=== PATIENT | female | born 1970 | race Caucasian/White ===

== ENCOUNTER 2017-06-25 17:26 | Observation (INO) | payer OTHER ==
[~2017-06-25] VITALS: Ht 170.2 cm; Wt 136.3 kg
[~2017-06-25 17:26] MED LIST: ATEN50TA PO; CIPR500T94 PO; HYDR-971 PO; METO25TA2 PO; PROP150T2 PO; RIVA10TA PO
[2017-06-25] MEDS ORDERED: IV NORMAL SALINE 500ML 500 ML IV ONE (18:00)
[2017-06-25] MEDS ORDERED: dilTIAZem 25 MG/5 ML VIAL IVP ONE (18:15)
[2017-06-25] MEDS ORDERED: ASPIRIN 81 MG TAB.CHEW PO ONE (18:15)
--- NOTE | 2017-06-25 18:15 | PHYS DOC ---
Past History Past Medical History: A-Fib, Hypertension Past Surgical History: Hysterectomy Alcohol Use: None Drug Use: None Adult General Chief Complaint Chief Complaint: CHEST PAIN HPI HPI Patient is a 46 year old female who presents with palpitations. Patient reports onset of symptoms about one hour prior to arrival while ambulating in her home. She reports palpitations, left-sided chest pain over her heart, dyspnea with exertion. Denies fevers or chills, cough, nausea, vomiting, diaphoresis, lower extremity pain or swelling. She has previous history of similar symptoms, has been diagnosed with paroxysmal A. fib. Used to take rate control medication whose name she does not remember. She previously took xarelto as well. She states she has been off her medications for at least 3 months due to financial problems. She denies history of CAD but does have hypertension. She is a former smoker. Catheter Finisher And Inspector is Dr. Alfaro. Review of Systems Review of Systems Constitutional: Denies fever or chills Eyes: Denies change in visual acuity HENT: Denies nasal congestion or sore throat Respiratory: Denies cough, reports shortness of breath Cardiovascular: Reports chest pain and palpitations, denies edema GI: Denies abdominal pain, nausea, vomiting, bloody stools or diarrhea : Denies dysuria or hematuria Musculoskeletal: Denies back pain or joint pain Integument: Denies rash or skin lesions Neurologic: Denies headache, focal weakness or sensory changes All other systems were reviewed and found to be within normal limits, except as documented in this note. Current Medications Current Medications Current Medications Medications (Trade) Dose Ordered Sig/Ruma Start Time Stop Time Status Last Admin Dose Admin Aspirin (Children'S Aspirin) 324 mg 1X ONCE 06/25/17 18:15 06/25/17 18:16 Diltiazem HCl (Cardizem) 20 mg 1X ONCE 06/25/17 18:15 06/25/17 18:16 Sodium Chloride 500 ml @ 0 mls/hr 1X ONCE 06/25/17 18:00 06/25/17 18:01 DC Allergies Allergies Allergies Coded Allergies Type Severity Reaction Last Updated Verified No Known Drug Allergies 05/22/15 No Physical Exam Physical Exam Constitutional: Obese, no acute distress, non-toxic appearance. HENT: Normocephalic, atraumatic, bilateral external ears normal, oropharynx moist, nose normal. Eyes: conjunctiva normal, no discharge. Neck: supple, no stridor. Cardiovascular: Irregularly irregular tachycardic, no murmurs, lower extremity edema is present Lungs & Thorax: LCTAB, no wheezing, no respiratory distress. Abdomen: soft, nontender, nondistended. Skin: Warm, dry, no erythema, no rash. Back: No tenderness. Extremities: No tenderness, 1+ nonpitting edema to bilateral lower extremities, no calf tenderness Neurologic: Alert and oriented X 3, no focal deficits noted. Psychologic: Affect normal, judgement normal, mood normal. Current Patient Data Vital Signs Vital Signs Date Time Temp Pulse Resp B/P (MAP) Pulse Ox O2 Delivery O2 Flow Rate FiO2 06/25/17 18:02 98.2 134 22 98 EKG EKG Interpreted by me: 1739: Irregularly irregular atrial fibrillation rate 105, no acute ST or T wave changes, no ectopy Radiology/Procedures Radiology/Procedures [] Course & Med Decision Making Course & Med Decision Making Pertinent Labs and Imaging studies reviewed. (See chart for details) The patient presents with atrial fibrillation with rapid ventricular rate. Rate is only 105 on EKG, but receiving to 140s at times during exam. Blood pressure stable. Gave IV fluids, aspirin, Cardizem. Ordered labs, chest x-ray. Anticipate patient will require Cardizem drip, anticoagulation with heparin, likely transfer for admission. Labs pending at the end of my shift. Will transfer care to Dr. Sahu to follow up results & disposition accordingly. The patient is in stable condition at the end of my shift. Farrukh Granados MD [] Patient signed out to me at 1800 shift change, morbidly obese 46-year-old female with history of hypertension and atrial fibrillation not taking medications past several months due to financial issues. She follows with Dr. Dominic Garces [place] cardiology hasn't followed up in some time. Approximately 4 PM today the patient developed sudden onset of palpitations with chest tightness, dyspnea on exertion and overwhelming fatigue. She says these are similar but worse than prior symptoms associated with her paroxysmal atrial fibrillation. Cardizem bolus and drip initiated prior to my arrival, potassium 3.2 replaced by mouth with 40 mEq here in the emergency department. AST 98, ALT 82, BNP 163 as labs are reassuring. The patient remains with a rate in the 110s to 120s despite Cardizem drip at 15 g. I discussed the need for hospitalization with the patient, she is aware that her process control supervisor will not be rounding here over the weekend and is agreeable to financial reporting consultant [facility] cardiology evaluation and treatment. 2030: I discussed the patient over the phone with on-call process control supervisor Dr. Horton. He requested the patient be admitted to [facility] with digoxin intravenously as well as anticoagulation. 2034: I discussed the patient with Dr. Bishop who accepts inpatient ICU admission for further observation and treatment as well as cardiology evaluation in the morning. The patient is resting comfortably without chest pain or dyspnea. She is agreeable to inpatient treatment. Impressions: Atrial fibrillation with RVR Hypokalemia Elevated LFTs Medication noncompliance Hypertension Morbid obesity Dragon Disclaimer Dragon Disclaimer This electronic medical record was generated, in whole or in part, using a voice recognition dictation system. Departure Departure: Referrals: WAYNE VOGEL-Peyton (PCP) FARRUKH GRANADOS MD Jun 25, 2017 18:15 KILEY SAHU DO Jun 26, 2017 00:41
--- NOTE | 2017-06-25 18:27 | EKG ---
[address] [address] Test Date: 2017-06-25 Test Time: 17:39:01 Pat Name: LISA JONES Department: Room: Gender: F Manager Erp: KIERRA : 1970 Requested By: FARRUKH ELIZONDO Order Number: [id number] Reading MD: Measurements Intervals [place] Rate: 105 P: [place]: QRS: 61 QRSD: 96 T: 48 QT: 352 QTc: 469 Interpretive Statements IRREGULAR RHYTHM, NO P-WAVE FOUND QRS(T) CONTOUR ABNORMALITY CONSISTENT WITH ANTEROLATERAL INFARCT PROBABLY OLD ABNORMAL ECG RI6.01 Unconfirmed report No previous ECG available for comparison
[2017-06-25 18:33] LABS: BASO # 0.1 x10^3/uL (0.0-0.2); BASO % 1 % (0-3); EOS # 0.3 x10^3/uL (0.0-0.7); EOS % 3 % (0-3); HEMATOCRIT 41.7 % (36.0-47.0); HEMOGLOBIN 14.4 g/dL (12.0-15.5); LYMPH % 23 % (24-48); MEAN CORPUSCULAR HEMOGLOBIN 30 pg (25-35); MEAN CORPUSCULAR HGB CONC 35 g/dL (31-37); MEAN CORPUSCULAR VOLUME 87 fL (79-100); MONO # 0.7 x10^3/uL (0.0-1.1); MONO % 8 % (0-9); NEUT # 5.6 x10^3uL (1.8-7.7); NEUT % 65 % (31-73); PLATELET COUNT 254 x10^3/uL (140-400); RED BLOOD COUNT 4.77 x10^6/uL (3.50-5.40); RED CELL DISTRIBUTION WIDTH 13.7 % (11.5-14.5); WHITE BLOOD COUNT 8.6 x10^3/uL (4.0-11.0)
[2017-06-25 18:46] LABS: ALBUMIN 3.3 g/dL (3.4-5.0); ALBUMIN/GLOBULIN RATIO 0.7 (1.0-1.7); CALCIUM 9.5 mg/dL (8.5-10.1); CREATININE 0.7 mg/dL (0.6-1.0); GFR 89.7; MAGNESIUM 1.8 mg/dL (1.8-2.4); POTASSIUM 3.2 mmol/L (3.5-5.1); TOTAL BILIRUBIN 0.3 mg/dL (0.2-1.0); TOTAL PROTEIN 7.8 g/dL (6.4-8.2)
[2017-06-25] MEDS ORDERED: POTASSIUM CHLORIDE 20 MEQ/15 ML ORAL LIQUID. PO ONE (19:15)
[2017-06-25] MEDS ORDERED: NITROGLYCERIN SUBLINGUAL 0.4 MG BOTTLE OF 25. SL PRN (20:45)
[2017-06-25] MEDS ORDERED: ONDANSETRON PF 4 MG/2 ML VIAL. IV PRN (20:45)
[2017-06-25] MEDS ORDERED: ACETAMINOPHEN 325 MG TABLET PO PRN (20:45)
[2017-06-25] MEDS ORDERED: MORPHINE SULFATE 4 MG/ML DISP.SYRIN. IV/SQ PRN (21:00)
[2017-06-25] MEDS ORDERED: DIGOXIN IV 500 MCG/2 ML AMPUL. IV ONE (21:00)
[2017-06-25] MEDS: ENOXAPARIN ** NOTE DOSE ** SYRINGE SQ SCH (21:04)
[2017-06-25 22:46] VITALS: BP 159/73
[2017-06-25 23:53] LABS: CLARITY,URINE CLEAR; COLOR,URINE STRAW; GLUCOSE,URINE 500 mg/dL (NEG)
[2017-06-25 23:54] LABS: BACTERIA,URINE FEW /HPF (0-FEW); BILIRUBIN,URINE NEG (NEG); NITRITE,URINE NEG (NEG); RBC,URINE 0 /HPF (0-2); SQUAMOUS EPITHELIAL CELL,UR FEW /LPF; UROBILINOGEN,URINE 0.2 mg/dL (0.2 mg/dL); WBC,URINE 0 /HPF (0-4)
[2017-06-26] VITALS (15 sets, daily range): BP systolic 141–182; BP diastolic 72–91
[2017-06-26] MEDS ORDERED: lisinopril (02:17)
[2017-06-26 08:16] LABS: BASO # 0.1 x10^3/uL (0.0-0.2); BASO % 1 % (0-3); EOS # 0.3 x10^3/uL (0.0-0.7); EOS % 5 % (0-3); HEMATOCRIT 39.4 % (36.0-47.0); HEMOGLOBIN 13.5 g/dL (12.0-15.5); LYMPH # 2.3 x10^3/uL (1.0-4.8); LYMPH % 32 % (24-48); MEAN CORPUSCULAR HEMOGLOBIN 30 pg (25-35); MEAN CORPUSCULAR HGB CONC 34 g/dL (31-37); MEAN CORPUSCULAR VOLUME 88 fL (79-100); MONO # 0.6 x10^3/uL (0.0-1.1); MONO % 9 % (0-9); NEUT % 54 % (31-73); PLATELET COUNT 245 x10^3/uL (140-400); RED BLOOD COUNT 4.51 x10^6/uL (3.50-5.40); RED CELL DISTRIBUTION WIDTH 14.3 % (11.5-14.5); WHITE BLOOD COUNT 7.3 x10^3/uL (4.0-11.0)
[2017-06-26 08:29] LABS: ALBUMIN/GLOBULIN RATIO 0.8 (1.0-1.7); CALCIUM 8.8 mg/dL (8.5-10.1); CREATININE 0.5 mg/dL (0.6-1.0); GFR 132.2; POTASSIUM 3.7 mmol/L (3.5-5.1); TOTAL BILIRUBIN 0.3 mg/dL (0.2-1.0); TOTAL PROTEIN 6.7 g/dL (6.4-8.2)
[2017-06-26] MEDS: ENOXAPARIN ** NOTE DOSE ** SYRINGE SQ SCH (09:31)
--- NOTE | 2017-06-26 11:38 | RAD ---
AP PORTABLE CHEST Clinical Indication: palpitations. Shortness of air Comparison: AP chest 05/28/2015. Findings: The cardiomediastinal silhouette is normal. Lungs are clear. There is no pneumothorax. No pleural effusion is appreciated. There is no acute bone abnormality. Stable old right posterior rib fractures. IMPRESSION: No acute cardiopulmonary process.
[2017-06-26] MEDS ORDERED: AMLO5TAB2 PO (13:27)
--- NOTE | 2017-06-26 14:14 | HP ---
ADMIT DATE: 06/25/2017 HISTORY OF PRESENT ILLNESS: The patient is a 46-year-old female patient who came to the Emergency Room, complained of chest pain, shortness of breath and palpitation that reported it started about an hour prior to her arrival by ambulance to the Emergency Room while ambulating in her home. She reports that she has left-sided chest pain however. She has also dyspnea with exertion. Denied any fever, chills, cough, nausea, vomiting, or diaphoresis. She apparently has previous history of similar symptoms. She was diagnosed before with paroxysmal atrial fibrillation and she used to take rate control medication. Apparently, she was also on Xarelto and has been off her medication for at least 3 months because of financial problems. She is known to have hypertension, but denied any history of coronary artery disease. Dr. Alfaro is her occupational therapy supervisor. She was evaluated in the Emergency Room, was found to be in atrial fibrillation with rapid ventricular response and was started on a Cardizem drip as well as Lovenox and was admitted to ICU to be monitored closely and to consult the Cardiology team. PAST MEDICAL HISTORY: Significant for hypertension, paroxysmal atrial fibrillation, morbid obesity, obstructive sleep apnea and osteoarthritis, particularly her left knee joint. PAST SURGICAL HISTORY: Significant for tonsillectomy and adenoidectomy, right and left carpal tunnel release, , tubal ligation, partial hysterectomy, and hemorrhoidectomy. ALLERGIES: She has no known drug allergies. HOME MEDICATIONS: Include atenolol 50 mg once a day, propafenone 150 mg 3 times a day, rivaroxaban for Xarelto 20 mg once a day, and lisinopril. FAMILY HISTORY: She has 1 older sister; at the age of 50, has diabetes. She is suboptimally controlled and hypertension. One younger sister in her 30s and seemingly healthy. Her father is alive at age of 70 and he is known to have atrial fibrillation. Mother is alive; at the age of 67, she is known to have diabetes, osteoarthritis and gastroesophageal reflux disease. SOCIAL HISTORY: She is and has 2 sons. She is an ex-smoker, quit years ago. She does not drink alcohol or use recreational drugs. 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 REVIEW OF SYSTEMS: The patient denied any blurring of vision, cataract, glaucoma or macular degeneration. Denied any earache, tinnitus or sensorineural deafness. Denied any nosebleeds, stuffy nose or postnasal drip. Denied any sore throat, sore tongue, toothache, hoarseness of voice or difficulty swallowing. Denied any nausea, vomiting, diarrhea or constipation. Denied any hematemesis, melena or hematochezia. Denied any dysuria, frequency or hematuria. Did complain of chest pain and shortness of breath, but denied any orthopnea or paroxysmal nocturnal dyspnea. Denied any cough, phlegm or hemoptysis. Denied any chills, rigors, or fever. Denied any dizziness, lightheadedness, or vertigo. PHYSICAL EXAMINATION: GENERAL: On arrival to the Emergency Room, the patient was somewhat pale, but no jaundice, cyanosis, or thyromegaly. No jugular venous distension. No limb edema. VITAL SIGNS: Her heart rate was 140, blood pressure was 178/115, temperature was 98.2, respiratory rate 22, and oxygen saturation was 98%. HEAD, EYES, EARS, NOSE AND THROAT: Normocephalic, atraumatic. NECK: Supple. HEART: Showed normal first and second heart sounds with no gallop, rub or murmur. CHEST: Clear to auscultation. No crepitation or rhonchi. ABDOMEN: Distended, soft, nontender. No guarding or rigidity. No organomegaly. All hernial orifices intact. Bowel sounds normal. NEUROLOGIC: She was awake, alert, responding appropriately. Cranial nerves intact. She moves extremities without difficulty. She ambulates without assistance or assistive devices. LABORATORY AND DIAGNOSTIC DATA: While in the Emergency Room, she had lab work, which showed a white cell count of 8600, hemoglobin 14.4, hematocrit 41.7, MCV 87 and platelet count of 254,000 with normal manual differential. Chemistry showed a serum sodium 139, potassium 3.2, chloride 103, bicarbonate 27, anion gap of 9, BUN 8, creatinine 0.7, estimated GFR was 89 mL per minute. Her glucose was ____, calcium was 9.5, magnesium was 1.8. Total bilirubin and alkaline phosphatase normal. AST, ALT were elevated. Her beta natriuretic peptide was 163. Total protein was 7.8, albumin 3.3. Her TSH was 1.46. Her EKG showed heart rate of 105 and it showed she was in atrial fibrillation with rapid ventricular response. She was also noted to have hypokalemia, transaminitis, and hyperglycemia. ASSESSMENT AND PLAN: She was admitted to the ICU, was started on Cardizem drip as well as Lovenox, and we will obviously consult the Cardiology team and apparently, Dr. Horton is aware of her admission. She did receive digoxin intravenously as well as anticoagulation. MARCIAL HSIEH MD DR: JIMMIE/george JOB#: [id number] / [id number]
--- NOTE | 2017-06-26 14:39 | PDOC2 ---
CONSULT Date of Admission DATE: 06/26/17 TIME: 14:39 Reason for Consult: Atrial fibrillation Referring Physician: Dr. Bishop Chief Complaint Palpitations Source: Chart review, Patient Problem List Problems Medical Problems: (1) Atrial fibrillation with RVR Status: Acute History of Present Illness 46-year-old female with history of paroxysmal atrial fibrillation previously being followed by Dr. Alfaro from [facility] Cardiology presented with palpitations associated with mild chest discomfort and shortness of breath that started one hour prior to presentation. She stated that she was previously being treated with Xarelto and Propafenone for her atrial fibrillation but she stopped taking these medications approximately 3 months ago for insurance reasons. She denied any orthopnea/PND or syncope. She was started on Cardizem infusion upon admission and this morning she converted back to sinus rhythm. She presently feels better and wants to go home. Past Medical History Hypertension Paroxysmal atrial fibrillation Obstructive sleep apnea Osteoarthritis Morbid obesity Past Surgical History Tonsillectomy Adenoidectomy Tubal ligation Partial hysterectomy Hemorrhoidectomy Family History Negative for premature coronary artery disease and positive for hypertension Social History Patient quit smoking several years ago and denies any alcohol or drug use Current Medications Current Medications Sodium Chloride 500 ml @ 0 mls/hr 1X ONCE IV Last administered on 06/25/17 18:00; Start 06/25/17 at 18:00; Stop 06/25/17 at 18:01; Status DC Aspirin (Children'S Aspirin) 324 mg 1X ONCE PO Last administered on 18:15; Start 06/25/17 at 18:15; Stop 06/25/17 at 18:16; Status DC Diltiazem HCl (Cardizem) 20 mg 1X ONCE IVP Last administered on 06/25/17 18: 15; Start 06/25/17 at 18:15; Stop 06/25/17 at 18:16; Status DC Diltiazem HCl 125 mg/Dextrose 125 ml @ 0 mls/hr 1X ONCE IV Last administered on 06/25/17 18:30; Start 06/25/17 at 18:30; Stop 06/25/17 at 18:31; Status DC Potassium Chloride (KCl Oral Soln) 40 meq 1X ONCE PO Last administered on 19:09; Start 06/25/17 at 19:15; Stop 06/25/17 at 19:16; Status DC Digoxin (Lanoxin) 500 mcg 1X ONCE IV Last administered on 06/25/17 21:00; Start 06/25/17 at 21:00; Stop 06/25/17 at 21:01; Status DC Enoxaparin Sodium (Lovenox 150mg Syringe) 140 mg Q12HR SQ Last administered on 06/26/17 09:31; Start 06/25/17 at 21:00 Ondansetron HCl (Zofran) 4 mg PRN Q4HRS PRN IV NAUSEA/VOMITING; Start at 20:45; Stop 06/26/17 at 20:44 Acetaminophen (Tylenol) 650 mg PRN Q4HRS PRN PO FEVER; Start 06/25/17 at 20:45 ; Stop 06/26/17 at 20:44 Nitroglycerin (Nitrostat) 0.4 mg PRN Q5MIN PRN SL CHEST PAIN; Start 06/25/17 at 20:45; Stop 06/26/17 at 20:44 Morphine Sulfate (Morphine 4mg Syringe) 4 mg PRN Q15MIN PRN IV/SQ PAIN GREATER THAN 3/10; Start 06/25/17 at 21:00; Stop 06/26/17 at 20:59 Diltiazem HCl 125 mg/Dextrose 125 ml @ 0 mls/hr CONT PRN IV SEE I/O RECORD Last administered on 06/26/17 00:35; Start 06/25/17 at 23:45 Active Scripts Active Xarelto (Rivaroxaban) 10 Mg Tablet 20 Mg PO DAILY PRN 30 Days Reported Amlodipine Besylate 5 Mg Tablet 1 Tab PO DAILY Propafenone Hcl 150 Mg Tablet 150 Mg PO TID Atenolol 50 Mg Tablet 1 Tab PO DAILY Allergies: Coded Allergies: No Known Drug Allergies (Unverified , 05/22/15) PSYCHOLOGICAL ROS: No: Hallucinations Eyes: No: Loss of vision HEENT: No: Epistaxis Respiratory: YES: Shortness of breath, No: Hemoptysis Cardiovascular: yes: Chest Pain, Palpitations Gastrointestinal: No: Vomiting, Diarrhea Genitourinary: No: Henaturia Neurological: No: Seizures Skin: No: Rash General: Alert, Oriented X3 HEENT: Atraumatic, PERRLA Lungs: Clear to auscultation Heart: Regular rate Abdomen: Soft, No tenderness Extremities: No edema Psych/Mental Status: Mood NL VITALS Vital Signs Date Time Temp Pulse Resp B/P (MAP) Pulse Ox O2 Delivery O2 Flow Rate FiO2 06/26/17 14:06 64 20 171/82 (111) 97 Room Air 06/26/17 05:49 98.3 Labs Laboratory Tests Test 06/25/17 18:00 06/25/17 23:30 06/26/17 01:50 06/26/17 07:52 White Blood Count 8.6 x10^3/uL (4.0-11.0) 7.3 x10^3/uL (4.0-11.0) Red Blood Count 4.77 x10^6/uL (3.50-5.40) 4.51 x10^6/uL (3.50-5.40) Hemoglobin 14.4 g/dL (12.0-15.5) 13.5 g/dL (12.0-15.5) Hematocrit 41.7 % (36.0-47.0) 39.4 % (36.0-47.0) Mean Corpuscular Volume 87 fL (79-100) 88 fL (79-100) Mean Corpuscular Hemoglobin 30 pg (25-35) 30 pg (25-35) Mean Corpuscular Hemoglobin Concent 35 g/dL (31-37) 34 g/dL (31-37) Red Cell Distribution Width 13.7 % (11.5-14.5) 14.3 % (11.5-14.5) Platelet Count 254 x10^3/uL (140-400) 245 x10^3/uL (140-400) Neutrophils (%) (Auto) 65 % (31-73) 54 % (31-73) Lymphocytes (%) (Auto) 23 % (24-48) 32 % (24-48) Monocytes (%) (Auto) 8 % (0-9) 9 % (0-9) Eosinophils (%) (Auto) 3 % (0-3) 5 % (0-3) Basophils (%) (Auto) 1 % (0-3) 1 % (0-3) Neutrophils # (Auto) 5.6 x10^3uL (1.8-7.7) 4.0 x10^3uL (1.8-7.7) Lymphocytes # (Auto) 2.0 x10^3/uL (1.0-4.8) 2.3 x10^3/uL (1.0-4.8) Monocytes # (Auto) 0.7 x10^3/uL (0.0-1.1) 0.6 x10^3/uL (0.0-1.1) Eosinophils # (Auto) 0.3 x10^3/uL (0.0-0.7) 0.3 x10^3/uL (0.0-0.7) Basophils # (Auto) 0.1 x10^3/uL (0.0-0.2) 0.1 x10^3/uL (0.0-0.2) Prothrombin Time 10.4 SEC (9.4-11.4) Prothromb Time International Ratio 1.0 (0.9-1.1) Sodium Level 139 mmol/L (136-145) 140 mmol/L (136-145) Potassium Level 3.2 mmol/L (3.5-5.1) 3.7 mmol/L (3.5-5.1) Chloride Level 103 mmol/L (98-107) 107 mmol/L (98-107) Carbon Dioxide Level 27 mmol/L (21-32) 26 mmol/L (21-32) Anion Gap 9 (6-14) 7 (6-14) Blood Urea Nitrogen 8 mg/dL (7-20) 7 mg/dL (7-20) Creatinine 0.7 mg/dL (0.6-1.0) 0.5 mg/dL (0.6-1.0) Estimated GFR (Cockcroft-Gault) 89.7 132.2 BUN/Creatinine Ratio 11 (6-20) 14 (6-20) Glucose Level 268 mg/dL (70-99) 158 mg/dL (70-99) Calcium Level 9.5 mg/dL (8.5-10.1) 8.8 mg/dL (8.5-10.1) Magnesium Level 1.8 mg/dL (1.8-2.4) Total Bilirubin 0.3 mg/dL (0.2-1.0) 0.3 mg/dL (0.2-1.0) Aspartate Amino Transf (AST/SGOT) 98 U/L (15-37) 65 U/L (15-37) Alanine Aminotransferase (ALT/SGPT) 82 U/L (14-59) 67 U/L (14-59) Alkaline Phosphatase 96 U/L (46-116) 84 U/L (46-116) Troponin I Quantitative < 0.017 ng/mL (0-0.055) 0.021 ng/mL (0-0.055) 0.024 ng/mL (0-0.055) LV-Aue-B-Type Natriuretic Peptide 163 pg/mL (0-124) Total Protein 7.8 g/dL (6.4-8.2) 6.7 g/dL (6.4-8.2) Albumin 3.3 g/dL (3.4-5.0) 3.0 g/dL (3.4-5.0) Albumin/Globulin Ratio 0.7 (1.0-1.7) 0.8 (1.0-1.7) Thyroid Stimulating Hormone (TSH) 1.460 uIU/mL (0.358-3.740) Urine Collection Type Unknown Urine Color Straw Urine Clarity Clear Urine pH 7.5 Urine Specific [place] 1.015 Urine Protein Neg (NEG-TRACE) Urine Glucose (UA) 500 mg/dL (NEG) Urine Ketones (Stick) Neg mg/dL (NEG) Urine Blood Neg (NEG) Urine Nitrite Neg (NEG) Urine Bilirubin Neg (NEG) Urine Urobilinogen Dipstick 0.2 mg/dL (0.2 mg/dL) Urine Leukocyte Esterase Neg (NEG) Urine RBC 0 /HPF (0-2) Urine WBC 0 /HPF (0-4) Urine Squamous Epithelial Cells Few /LPF Urine Bacteria Few /HPF (0-FEW) Assessment/Plan 1. Paroxysmal atrial fibrillation with rapid ventricular response: Patient is currently back in sinus rhythm. Change Cardizem to by mouth CD 120 mg daily. Stop home medications Norvasc and atenolol. Resume propafenone for rhythm maintenance and Xarelto for stroke prophylaxis. Plan for 2-D echo to assess LV systolic function as an outpatient. 2. Chest pain: Most probably secondary to RVR. Presently resolved. Patient had cardiac catheterization in 2010 that did not show any significant coronary artery disease. Doubt ACS. Consider ischemic evaluation with stress test as an outpatient. 3. Hypertension: Controlled Thank you for your consultation Problems: RUTHANN RENEE MD Jun 26, 2017 14:39
[2017-06-26] MEDS ORDERED: DILT120C13 PO (15:09)
--- NOTE | 2017-06-26 19:25 | DS ---
DATE OF DISCHARGE: 06/26/2017 HOSPITAL COURSE: The patient is a 46-year-old female patient who was admitted with the complaint of palpitation, chest pain, and shortness of breath, was found to be in atrial fibrillation with rapid ventricular response. She was started on Cardizem drip as well as given Lovenox 1 mg/kg subcutaneously twice a day. She basically converted to sinus rhythm, her heart rate was well controlled. She was seen by the entertainment manager who recommended discontinuing her atenolol and amlodipine. Start her on diltiazem and continue with propafenone as well as rivaroxaban. PHYSICAL EXAMINATION: GENERAL: When I saw her this afternoon, she looked well and was clearly in no apparent respiratory distress, pale, but no jaundice, cyanosis, or thyromegaly. No jugular venous distention. No limb edema. VITAL SIGNS: Her heart rate was 64, blood pressure 171/82, temperature was 98, respiratory rate was 20, and oxygen saturation was 97%. HEAD, EYES, EARS, NOSE, AND THROAT: Showed normocephalic, atraumatic. NECK: Supple. HEART: Showed normal first and second sounds. No gallop, rub or murmur. CHEST: Clear to auscultation. No crepitation or rhonchi. ABDOMEN: Distended, soft, nontender. NEUROLOGIC: She is awake, alert, responding appropriately. Cranial nerves intact. EXTREMITIES: She moves extremities without difficulty. She ambulates without assistance or assistive devices. LABORATORY DATA: Her white cell count was 7300, hemoglobin 13.5, hematocrit 39, MCV 88, and platelet count of 245,000. Her chemistry showed a serum sodium 140, potassium 3.7, chloride 107, bicarbonate 26, anion gap of 7, BUN 7, creatinine 0.5, estimated GFR was 132 mL per minute. Her glucose 158, calcium was 8.8. Total bilirubin and alkaline phosphatase normal. AST, ALT slightly elevated. Her total protein was 6.7, albumin 3. Her TSH was 1.46. FINAL DISCHARGE DIAGNOSES: Paroxysmal atrial fibrillation, rate controlled, hypertension for which she is now on Cardizem extended release 120 mg once a day, morbid obesity, obstructive sleep apnea. The patient should follow with the cardiology team for outpatient echocardiography. MARCIAL HSIEH MD DR: JIMMIE/george JOB#: [id number] / [id number]
--- NOTE | 2017-06-27 06:27 | PN ---
DATE: 06/26/2017 SUBJECTIVE: The patient is resting, slightly propped up in bed, in no apparent distress. She is awake, alert. On questioning her, she denied any further episodes of palpitation. Denied any chest pain or shortness of breath. Her heart rate is well controlled now and she is back in sinus rhythm and in fact she is in sinus bradycardia. OBJECTIVE: GENERAL: When I examined her, she looked well and was clearly in no apparent respiratory distress, pale, but no jaundice, cyanosis, lymphadenopathy or thyromegaly. No jugular venous distention. No limb edema. VITAL SIGNS: Her heart rate was 64, blood pressure 152/83, temperature was 98, respiratory rate was 20, and oxygen saturation was 98% on room air. HEENT : Normocephalic, atraumatic. NECK: Supple. HEART: Showed normal first and second heart sounds with no gallop, rub or murmur. CHEST: Clear to auscultation. No crepitation or rhonchi. ABDOMEN: Distended, soft, nontender. No guarding or rigidity. No organomegaly. Hernial orifice intact. Bowel sounds normal. NEUROLOGIC: She is awake, alert, responding appropriately. All cranial nerves intact. She moves extremities without difficulty. She ambulates without assistance or assistive devices. Her intake over the last 24 hours was 343, output was 1375. LABORATORY DATA: This morning showed that her serum sodium was 140, potassium 3.7, chloride 107, bicarbonate 26, anion gap of 7, BUN of 7, creatinine 0.5, estimated GFR was 132 mL per minute. Her glucose was 158, calcium was 8.8. Total bilirubin and alkaline phosphatase normal. AST, ALT slightly elevated. She has 3 sets of cardiac enzymes that are all less than 0.024. Total protein was 6.7, albumin 3. Her prothrombin time was 10.4. INR of 1. Urinalysis showed the urine was yellow stroke, clear with a pH of 7.5, specific gravity of 1.015. There was large amount of glucose, negative for protein, ketones, blood, nitrite and leukocyte esterase. There was 0 rbc's, 0 wbc's, and few bacteria. ASSESSMENT: Paroxysmal atrial fibrillation, rate controlled, well anticoagulated; hypertension, suboptimally controlled; morbid obesity, obstructive sleep apnea, osteoarthritis and probably type 2 diabetes. MARCIAL HSIEH MD DR: Meryl JOB#: [id number] / [id number]
== END 2017-06-26 15:55 | disposition home or self-care (01) ==
LOC: ER 17:26 → ICU 20:35 → UNDOADMIN 20:35 → INTOOBSV 20:35 → UNDODISIN 06-26 15:55
PROVIDERS: ADMIT Internal Medicine; ATTEND Internal Medicine
DX: I48.0 Paroxysmal atrial fibrillation (principal); G47.33 Obstructive sleep apnea (adult) (pediatric); M19.90 Unspecified osteoarthritis, unspecified site; E66.01 Morbid (severe) obesity due to excess calories; I10 Essential (primary) hypertension; E87.6 Hypokalemia; E11.9 Type 2 diabetes mellitus without complications; Z91.14 Patient's other noncompliance with medication regimen; Z59.9 Problem related to housing and economic circumstances, unspecified; Z90.89 Acquired absence of other organs; Z98.51 Tubal ligation status; Z90.711 Acquired absence of uterus with remaining cervical stump; Z82.49 Family history of ischemic heart disease and other diseases of the circulatory system; Z68.42 Body mass index [BMI] 45.0-49.9, adult; Z83.3 Family history of diabetes mellitus; Z87.891 Personal history of nicotine dependence
CPT/HCPCS: 36415; 71010; 80053; 81001; 83735; 83880; 84443; 84484; 85025; 85610; 87641; 93005; 96365; 96366; 96372; 96375; 96376; 99285; G0378; G0379; J1160; J1650; J3490; J7040; 96374

== ENCOUNTER 2018-02-03 14:10 | Inpatient (IN) | payer OTHER ==
[~2018-02-03] VITALS: Ht 170.2 cm; Wt 137.2 kg
[~2018-02-03 14:10] MED LIST changes: +AMLO5TAB2 PO; +DILT120C13 PO; +lisinopril
--- NOTE | 2018-02-03 14:27 | PHYS DOC ---
Past History Past Medical History: A-Fib, Hypertension Past Surgical History: Hysterectomy Smoking: Quit Greater Than 1 Year Alcohol Use: None Drug Use: None Adult General Chief Complaint Chief Complaint: SHORTNESS OF BREATH HPI HPI Patient is a 47-year-old female presents to the emergency department for evaluation. She has a history of atrial fibrillation, for which she takes Xarelto. She states that yesterday she had some chest discomfort, which has persistently gotten worse on exertion, along with some shortness of breath on exertion. She had some palpitations and a "racing heart" yesterday, but that has resolved. The chest discomfort is described as an achiness and a pressure does not radiate. Exertion worsens her symptoms. There are no alleviating factors to her symptoms. She has not had any nausea, vomiting, or diaphoresis she states that she does not have any known coronary artery disease, did have a heart catheterization which was unremarkable, but that was over 10 years ago. Review of Systems Review of Systems Constitutional: Denies fever or chills [] Eyes: Denies change in visual acuity, redness, or eye pain [] HENT: Denies nasal congestion or sore throat [] Respiratory: Denies cough or pleuritic pain[] Cardiovascular: No additional information not addressed in HPI [] GI: Denies abdominal pain, nausea, vomiting, bloody stools or diarrhea [] : Denies dysuria or hematuria [] Musculoskeletal: Denies back pain or joint pain [] Integument: Denies rash or skin lesions [] Neurologic: Denies headache, focal weakness or sensory changes [] Endocrine: Denies polyuria or polydipsia [] All other systems were reviewed and found to be within normal limits, except as documented in this note. Allergies Allergies Allergies Coded Allergies Type Severity Reaction Last Updated Verified No Known Drug Allergies 05/22/15 No Physical Exam Physical Exam PHYSICAL EXAM: CONSTITUTIONAL: Well developed, well nourished HEAD: normocephalic, atraumatic EENT: PERRL, EOMI. Conjunctivae normal color, sclerae non-icteric; moist mucous membranes. NECK: Supple, non-tender; no meningismus. LUNGS: Lungs CTA, breathing even and unlabored. Normal air movement. HEART: Regular rate and rhythm, no murmur CHEST: No deformity; non-tender ABDOMEN: The abdomen is soft, and non-tender, no masses or bruits. EXTREM: Normal ROM; no deformity, no calf tenderness. Normal pulses palpable in all extremities. There is no pedal edema. SKIN: No rash; no diaphoresis NEURO: Alert; normal speech and cognition; CN's grossly intact; strength grossly intact without focal deficit. BACK: No CVA TTP. EKG EKG [Normal sinus rhythm at a rate of 98 bpm, borderline right axis deviation, normal intervals, inferior Q waves, small, are present. There are no acute ischemic ST/T-segment changes noted.] Radiology/Procedures Radiology/Procedures [PROCEDURE: PORTABLE CHEST 1V EXAM: Chest, single view. HISTORY: Chest pain. COMPARISON: None. FINDINGS: A frontal view of the chest is obtained. There is mild diffuse increased interstitial opacity. There is no consolidation, pleural effusion or pneumothorax. There is a prominent cardiac silhouette. There is a healed right posterior rib fracture. IMPRESSION: Suspected trace pulmonary congestion. ] Course & Med Decision Making Course & Med Decision Making Pertinent Labs and Imaging studies reviewed. (See chart for details) [Patient's labs have been reviewed. Both magnesium 1.7, potassium 2.9. BNP slightly elevated at 550, normal white count. Urinalysis is currently pending, as the patient has not yet provided a specimen and this will need to be followed closely upstairs. Troponin is negative. I discussed case with the hospitalist will admit the patient for further evaluation and treatment.] Dragon Disclaimer Dragon Disclaimer This electronic medical record was generated, in whole or in part, using a voice recognition dictation system. Departure Departure: Impression: Primary Impression: Chest pain Additional Impressions: Fever, unknown origin Hypokalemia Disposition: 09 ADMITTED INPATIENT Admitting Physician: Ambrocio Bishop Referrals: WAYNE VOGEL-Peyton (PCP) Problem Qualifiers LALITA GARCIA MD Feb 03, 2018 14:27
[2018-02-03] MEDS ORDERED: NITROGLYCERIN OINT 1 GM PACKET. TP ONE (14:30)
[2018-02-03] MEDS ORDERED: ASPIRIN 81 MG TAB.CHEW PO ONE (14:30)
--- NOTE | 2018-02-03 14:42 | RAD ---
EXAM: Chest, single view. HISTORY: Chest pain. COMPARISON: None. FINDINGS: A frontal view of the chest is obtained. There is mild diffuse increased interstitial opacity. There is no consolidation, pleural effusion or pneumothorax. There is a prominent cardiac silhouette. There is a healed right posterior rib fracture. IMPRESSION: Suspected trace pulmonary congestion. Electronically signed by: Keiry Finley MD (02/03/2018 2:38 PM) [place] [id number]
[2018-02-03 14:47] LABS: BASO # 0.1 x10^3/uL (0.0-0.2); BASO % 1 % (0-3); EOS % 0 % (0-3); HEMATOCRIT 37.7 % (36.0-47.0); LYMPH # 0.9 x10^3/uL (1.0-4.8); LYMPH % 8 % (24-48); MEAN CORPUSCULAR HEMOGLOBIN 30 pg (25-35); MEAN CORPUSCULAR HGB CONC 35 g/dL (31-37); MEAN CORPUSCULAR VOLUME 88 fL (79-100); MONO # 1.1 x10^3/uL (0.0-1.1); MONO % 10 % (0-9); NEUT # 8.9 x10^3uL (1.8-7.7); NEUT % 81 % (31-73); PLATELET COUNT 208 x10^3/uL (140-400); RED CELL DISTRIBUTION WIDTH 14.3 % (11.5-14.5)
[2018-02-03] MEDS ORDERED: ACETAMINOPHEN 500 MG TABLET PO ONE (15:00)
[2018-02-03 15:10] LABS: ALBUMIN 2.8 g/dL (3.4-5.0); ALBUMIN/GLOBULIN RATIO 0.6 (1.0-1.7); ALK PHOS 97 U/L (46-116); ALT (SGPT) 36 U/L (14-59); ANION GAP 11 (6-14); AST (SGOT) 22 U/L (15-37); BLOOD UREA NITROGEN 11 mg/dL (7-20); BUN/CREATININE RATIO 10 (6-20); CALCIUM 9.1 mg/dL (8.5-10.1); CARBON DIOXIDE 24 mmol/L (21-32); CHLORIDE 100 mmol/L (98-107); CREATININE 1.1 mg/dL (0.6-1.0); GLUCOSE 199 mg/dL (70-99); LIPASE 107 U/L (73-393); MAGNESIUM 1.7 mg/dL (1.8-2.4); SODIUM 135 mmol/L (136-145); TOTAL BILIRUBIN 0.9 mg/dL (0.2-1.0); TOTAL PROTEIN 7.5 g/dL (6.4-8.2)
[2018-02-03 15:11] LABS: POTASSIUM 2.9 mmol/L (3.5-5.1)
[2018-02-03] MEDS ORDERED: IV NORMAL SALINE 1,000ML 1,000 ML IV ONE (15:15)
[2018-02-03] MEDS ORDERED: POTASSIUM CHLORIDE 20 MEQ TABLET.ER. PO ONE ×2 (15:30→19:00)
[2018-02-03] MEDS ORDERED: POTASSIUM CHLORIDE 20MEQ 100 ML IV ONE (15:30)
[2018-02-03] MEDS ORDERED: MAGNESIUM SULFATE 1GM 100 ML IV ONE (15:30)
[2018-02-03 17:01] LABS: BILIRUBIN,URINE NEG (NEG); CLARITY,URINE TURBID; COLOR,URINE AMBER; GLUCOSE,URINE NEG (NEG); NITRITE,URINE POS (NEG); UROBILINOGEN,URINE 8 mg/dL (0.2 mg/dL)
[2018-02-03 17:02] LABS: BACTERIA,URINE MANY /HPF (0-FEW); WBC,URINE >40 /HPF (0-4)
[2018-02-03] MEDS ORDERED: cefTRIAXone IV Push 1 GM VIAL. IVP ONE (17:30)
[2018-02-03 17:40] VITALS: BP 103/60
[2018-02-03] MEDS ORDERED: RIVA20TA2 PO (18:32)
[2018-02-03] MEDS ORDERED: DILT60TA PO (18:32)
[2018-02-03 20:24] VITALS: BP 124/66
[2018-02-03] MEDS: PROPAFENONE 150 MG TABLET. PO SCH (21:36)
[2018-02-03] MEDS: MAGNESIUM OXIDE 400 MG TABLET PO SCH (21:38)
[2018-02-03] MEDS: ACETAMINOPHEN 325 MG TABLET PO PRN (22:24)
[2018-02-03 23:39] VITALS: BP 121/71
[2018-02-04 05:40] VITALS: BP 143/81
[2018-02-04] MEDS: PROPAFENONE 150 MG TABLET. PO SCH ×3 (06:10→21:15)
[2018-02-04 06:40] LABS: BASO # 0.1 x10^3/uL (0.0-0.2); BASO % 1 % (0-3); EOS % 0 % (0-3); HEMATOCRIT 36.3 % (36.0-47.0); HEMOGLOBIN 12.4 g/dL (12.0-15.5); LYMPH # 0.9 x10^3/uL (1.0-4.8); LYMPH % 10 % (24-48); MEAN CORPUSCULAR HEMOGLOBIN 30 pg (25-35); MEAN CORPUSCULAR HGB CONC 34 g/dL (31-37); MEAN CORPUSCULAR VOLUME 88 fL (79-100); MONO # 0.9 x10^3/uL (0.0-1.1); MONO % 11 % (0-9); NEUT # 6.9 x10^3uL (1.8-7.7); NEUT % 78 % (31-73); PLATELET COUNT 178 x10^3/uL (140-400); RED BLOOD COUNT 4.12 x10^6/uL (3.50-5.40); RED CELL DISTRIBUTION WIDTH 14.5 % (11.5-14.5); WHITE BLOOD COUNT 8.8 x10^3/uL (4.0-11.0)
[2018-02-04 06:49] LABS: ALBUMIN 2.5 g/dL (3.4-5.0); ALBUMIN/GLOBULIN RATIO 0.6 (1.0-1.7); CREATININE 0.9 mg/dL (0.6-1.0); GFR 66.8; POTASSIUM 3.4 mmol/L (3.5-5.1)
[2018-02-04 06:56] LABS: % BANDS 5 % (0-9); % BASOS 1 % (0-3); % EOS 1 % (0-5); % LYMPHS 12 % (24-48); % MONOS 8 % (0-10); % SEGS 72 % (35-66); PLT ESTIMATE ADEQUATE (ADEQUATE)
[2018-02-04 06:57] LABS: POLYCHROMASIA SLIGHT; TOXIC GRANULATION SLIGHT
[2018-02-04 06:59] LABS: % ATYL 1 % (0-0)
--- NOTE | 2018-02-04 07:45 | EKG ---
[address] [address] Test Date: 2018-02-03 Test Time: 14:21:53 Pat Name: LISA JONES Department: Room: Gender: F [employer]: : 1970 Requested By: LALITA GARCIA Order Number: [id number] Reading MD: Measurements Intervals Ethel Rate: 98 P: -54 ND: 156 QRS: 97 QRSD: 110 T: 31 QT: 348 QTc: 446 Interpretive Statements SINUS RHYTHM RIGHTWARD AXIS QRS(T) CONTOUR ABNORMALITY CONSISTENT WITH ANTEROLATERAL INFARCT PROBABLY OLD CONSISTENT WITH INFERIOR INFARCT PROBABLY OLD ABNORMAL ECG RI6.01 Unconfirmed report No previous ECG available for comparison
[2018-02-04] MEDS: LACTOBACILLUS RHAMNOSUS GG 1 CAPSULE. PO SCH ×2 (08:33→21:14)
[2018-02-04] MEDS: RIVAROXABAN 10 MG TABLET. PO SCH (08:33)
[2018-02-04] MEDS: MAGNESIUM OXIDE 400 MG TABLET PO SCH ×2 (08:33→21:14)
[2018-02-04] MEDS: POTASSIUM CHLORIDE 20 MEQ TABLET.ER. PO SCH ×3 (08:33→21:14)
--- NOTE | 2018-02-04 09:34 | PDOC2 ---
CONSULT Date of Admission DATE: 02/04/18 TIME: 09:17 Reason for Consult: cp Problem List Problems Medical Problems: (1) Chest pain Status: Acute (2) Fever, unknown origin Status: Acute (3) Hypokalemia Status: Acute History of Present Illness 47-year-old female with history of paroxysmal atrial fibrillation presented with palpitations, chest discomfort and dyspnea on exertion so consult was requested. She reports racing heart sensation all day Wed. Yesterday morning she went to work as usual but began to have mid sternal chest tightness and dyspnea that worsened with minimal exertion and improved with rest. 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 In the ED she was noted to have a temperature of 103, sinus tachycardia and labs revealed urosepsis. Currently she is resting comfortably. She reports increased shortness of breath if she walks to the bathroom. She denies any orthopnea or PND but admits she always elevates her head at night for comfort. She reports edema worse in the evenings and better in the mornings. She denies any significant increase in her normal edema. She reports palpitations as described above. She does report some lightheadedness on Wed with the fast heart beat but denies any syncope. Past Medical History Echo 07/2017 The left ventricle is normal size. The left ventricular systolic function is normal and the ejection fraction is within normal range. LV ejection fraction is 55-60%. There is mild concentric left ventricular hypertrophy. There is no significant aortic valvular stenosis. Doppler and Color Flow revealed no significant aortic regurgitation. Doppler and Color Flow revealed no mitral valve regurgitation noted. Doppler and Color Flow revealed mild tricuspid regurgitation. MPI 07/2017 Conclusion 1. No evidence of stress induced EKG changes. 2. There is a moderate size, severe in intensity FIXED basal to mid anterior/ anterolateral defect suggestive of breast attenuation artifact rather than true infarct based on no evidence of q waves on EKG and normal wall motion. 3. Normal wall motion. EF > 60% 4. Low to moderate risk study 5. Motion artifact, breast attenuation artifact noted. Cardiac cath at [facility] in 2010 with normal coronaries Hypertension Paroxysmal atrial fibrillation Obstructive sleep apnea Osteoarthritis Morbid obesity Past Surgical History Tonsillectomy Adenoidectomy Tubal ligation Partial hysterectomy Hemorrhoidectomy Family History Negative for premature coronary artery disease and positive for hypertension Social History Patient quit smoking several years ago and denies any alcohol or drug use Current Medications Current Medications Aspirin (Children'S Aspirin) 324 mg 1X ONCE PO Last administered on 02/03/18at 15:05; Start 02/03/18 at 14:30; Stop 02/03/18 at 14:31; Status DC Nitroglycerin (Nitro-Bid Oint) 1 inch 1X ONCE TP Last administered on at 15:05; Start 02/03/18 at 14:30; Stop 02/03/18 at 14:31; Status DC Acetaminophen (Tylenol) 1,000 mg 1X ONCE PO Last administered on 02/03/18at 15: 04; Start 02/03/18 at 15:00; Stop 02/03/18 at 15:01; Status DC Sodium Chloride 1,000 ml @ 1,000 mls/hr 1X ONCE IV Last administered on at 15:26; Start 02/03/18 at 15:15; Stop 02/03/18 at 16:14; Status DC Magnesium Sulfate 100 ml @ 100 mls/hr 1X ONCE IV Last administered on at 15:37; Start 02/03/18 at 15:30; Stop 02/03/18 at 16:29; Status DC Potassium Chloride (Klor-Con) 40 meq 1X ONCE PO Last administered on 02/03/18at 15:35; Start 02/03/18 at 15:30; Stop 02/03/18 at 15:31; Status DC Potassium Chloride 100 ml @ 50 mls/hr 1X ONCE IV Last administered on at 15:36; Start 02/03/18 at 15:30; Stop 02/03/18 at 17:29; Status DC Ceftriaxone Sodium 1 gm/ Sodium Chloride 50 ml @ 100 mls/hr 1X ONCE IV ; Start 02/03/18 at 17:15; Stop 02/03/18 at 17:44; Status UNV Ceftriaxone Sodium (Rocephin) 1 gm 1X ONCE IVP Last administered on 02/03/18at 17:13; Start 02/03/18 at 17:30; Stop 02/03/18 at 17:31; Status DC Ceftriaxone Sodium 1 gm/ Sodium Chloride 50 ml @ 100 mls/hr Q24H IV ; Start 02/04/18 at 15:00; Stop 02/04/18 at 15:00; Status DC Potassium Chloride (Klor-Con) 40 meq 1X ONCE PO Last administered on 02/03/18 21:29; Start 02/03/18 at 19:00; Stop 02/03/18 at 19:16; Status DC Potassium Chloride (Klor-Con) 20 meq TID PO Last administered on 02/04/18 08:33 ; Start 02/04/18 at 09:00 Magnesium Oxide (Magnesium Oxide) 400 mg BID PO Last administered on 02/04/18 08:33; Start 02/03/18 at 21:00 Propafenone HCl (Rythmol) 225 mg Q8HRS PO Last administered on 02/04/18 06:10; Start 02/03/18 at 22:00 Rivaroxaban (Xarelto) 20 mg DAILY PO Last administered on 02/04/18 08:33; Start 02/04/18 at 09:00 Diltiazem HCl (Cardizem 24hr Cd) 120 mg DAILY PO Last administered on 02/04/18 08:33; Start 02/04/18 at 09:00 Ceftriaxone Sodium (Rocephin) 1 gm Q24H IVP ; Start 02/04/18 at 15:00 Acetaminophen (Tylenol) 650 mg PRN Q4HRS PRN PO PAIN / TEMP Last administered on 02/03/18at 22:24; Start 02/03/18 at 22:15 Lactobacillus Rhamnosus (Culturelle) 1 cap BID PO Last administered on 08:33; Start 02/04/18 at 09:00 Active Scripts Active Reported Diltiazem Hcl Tablet (Diltiazem Hcl) 60 Mg Tablet Mg PO BID LAST DOSE GIVEN: DATE: TIME: NEXT DOSE DUE: DATE: TIME: Xarelto (Rivaroxaban) 20 Mg Tablet 20 Mg PO DAILY LAST DOSE GIVEN: DATE: TIME: NEXT DOSE DUE: DATE: TIME: Propafenone Hcl 150 Mg Tablet 150 Mg PO TID LAST DOSE GIVEN: DATE: TIME: NEXT DOSE DUE: DATE: TIME: Allergies: Coded Allergies: No Known Drug Allergies (Unverified , 05/22/15) Review of System as per HPI with the addition of complaints of urinary frequency, otherwise negative. General: Alert, Oriented X3, Cooperative, No acute distress HEENT: Atraumatic, EOMI, Other (No JVD/HJR) Lungs: Other (decreased bases otherwise clear) Heart: Regular rate, Normal S1, Normal S2 Abdomen: Normal bowel sounds, Soft Extremities: No clubbing, No cyanosis, No edema, Normal pulses Neuro: Normal speech, Strength at 5/5 X4 ext Psych/Mental Status: Mental status NL, Mood NL VITALS Vital Signs Date Time Temp Pulse Resp B/P (MAP) Pulse Ox O2 Delivery O2 Flow Rate FiO2 02/04/18 08:33 71 143/79 02/04/18 05:40 99.1 26 96 Room Air Labs Laboratory Tests Test 02/03/18 14:30 02/03/18 16:25 02/03/18 18:01 02/03/18 21:35 White Blood Count 11.0 x10^3/uL (4.0-11.0) Red Blood Count 4.30 x10^6/uL (3.50-5.40) Hemoglobin 13.0 g/dL (12.0-15.5) Hematocrit 37.7 % (36.0-47.0) Mean Corpuscular Volume 88 fL (79-100) Mean Corpuscular Hemoglobin 30 pg (25-35) Mean Corpuscular Hemoglobin Concent 35 g/dL (31-37) Red Cell Distribution Width 14.3 % (11.5-14.5) Platelet Count 208 x10^3/uL (140-400) Neutrophils (%) (Auto) 81 % (31-73) Lymphocytes (%) (Auto) 8 % (24-48) Monocytes (%) (Auto) 10 % (0-9) Eosinophils (%) (Auto) 0 % (0-3) Basophils (%) (Auto) 1 % (0-3) Neutrophils # (Auto) 8.9 x10^3uL (1.8-7.7) Lymphocytes # (Auto) 0.9 x10^3/uL (1.0-4.8) Monocytes # (Auto) 1.1 x10^3/uL (0.0-1.1) Eosinophils # (Auto) 0.0 x10^3/uL (0.0-0.7) Basophils # (Auto) 0.1 x10^3/uL (0.0-0.2) Sodium Level 135 mmol/L (136-145) Potassium Level 2.9 mmol/L (3.5-5.1) Chloride Level 100 mmol/L (98-107) Carbon Dioxide Level 24 mmol/L (21-32) Anion Gap 11 (6-14) Blood Urea Nitrogen 11 mg/dL (7-20) Creatinine 1.1 mg/dL (0.6-1.0) Estimated GFR (Cockcroft-Gault) 53.0 BUN/Creatinine Ratio 10 (6-20) Glucose Level 199 mg/dL (70-99) Lactic Acid Level 2.9 mmol/L (0.4-2.0) 0.9 mmol/L (0.4-2.0) Calcium Level 9.1 mg/dL (8.5-10.1) Magnesium Level 1.7 mg/dL (1.8-2.4) Total Bilirubin 0.9 mg/dL (0.2-1.0) Aspartate Amino Transf (AST/SGOT) 22 U/L (15-37) Alanine Aminotransferase (ALT/SGPT) 36 U/L (14-59) Alkaline Phosphatase 97 U/L (46-116) Creatine Kinase 92 U/L (26-192) Creatine Kinase MB (Mass) < 0.5 ng/mL (0.0-3.6) Creatine Kinase MB Relative Index 0.5 % (0-4) Troponin I Quantitative < 0.017 ng/mL (0-0.055) < 0.017 ng/mL (0-0.055) < 0.017 ng/mL (0-0.055) FE-Bve-R-Type Natriuretic Peptide 550 pg/mL (0-124) Total Protein 7.5 g/dL (6.4-8.2) Albumin 2.8 g/dL (3.4-5.0) Albumin/Globulin Ratio 0.6 (1.0-1.7) Lipase 107 U/L (73-393) Urine Collection Type Unknown Urine Color [place] Urine Clarity Turbid Urine pH 5.5 Urine Specific [place] 1.015 Urine Protein 100 mg/dl (NEG-TRACE) Urine Glucose (UA) Neg mg/dL (NEG) Urine Ketones (Stick) Neg mg/dL (NEG) Urine Blood Large (NEG) Urine Nitrite Pos (NEG) Urine Bilirubin Neg (NEG) Urine Urobilinogen Dipstick 8 mg/dL (0.2 mg/dL) Urine Leukocyte Esterase Mod (NEG) Urine RBC 11-20 /HPF (0-2) Urine WBC >40 /HPF (0-4) Urine Squamous Epithelial Cells None /LPF Urine Bacteria Many /HPF (0-FEW) Test 02/04/18 06:08 02/04/18 07:37 White Blood Count 8.8 x10^3/uL (4.0-11.0) Red Blood Count 4.12 x10^6/uL (3.50-5.40) Hemoglobin 12.4 g/dL (12.0-15.5) Hematocrit 36.3 % (36.0-47.0) Mean Corpuscular Volume 88 fL (79-100) Mean Corpuscular Hemoglobin 30 pg (25-35) Mean Corpuscular Hemoglobin Concent 34 g/dL (31-37) Red Cell Distribution Width 14.5 % (11.5-14.5) Platelet Count 178 x10^3/uL (140-400) Neutrophils (%) (Auto) 78 % (31-73) Lymphocytes (%) (Auto) 10 % (24-48) Monocytes (%) (Auto) 11 % (0-9) Eosinophils (%) (Auto) 0 % (0-3) Basophils (%) (Auto) 1 % (0-3) Neutrophils # (Auto) 6.9 x10^3uL (1.8-7.7) Lymphocytes # (Auto) 0.9 x10^3/uL (1.0-4.8) Monocytes # (Auto) 0.9 x10^3/uL (0.0-1.1) Eosinophils # (Auto) 0.0 x10^3/uL (0.0-0.7) Basophils # (Auto) 0.1 x10^3/uL (0.0-0.2) Segmented Neutrophils % 72 % (35-66) Band Neutrophils % 5 % (0-9) Lymphocytes % 12 % (24-48) Atypical Lymphocytes % (Manual) 1 % (0-0) Monocytes % 8 % (0-10) Eosinophils % 1 % (0-5) Basophils % 1 % (0-3) Toxic Granulation Slight Dohle Bodies Present Platelet Estimate Adequate (ADEQUATE) Polychromasia Slight Hypochromasia Sodium Level 134 mmol/L (136-145) Potassium Level 3.4 mmol/L (3.5-5.1) Chloride Level 102 mmol/L (98-107) Carbon Dioxide Level 24 mmol/L (21-32) Anion Gap 8 (6-14) Blood Urea Nitrogen 11 mg/dL (7-20) Creatinine 0.9 mg/dL (0.6-1.0) Estimated GFR (Cockcroft-Gault) 66.8 BUN/Creatinine Ratio 12 (6-20) Glucose Level 168 mg/dL (70-99) Calcium Level 9.0 mg/dL (8.5-10.1) Magnesium Level 1.7 mg/dL (1.8-2.4) Total Bilirubin 1.0 mg/dL (0.2-1.0) Aspartate Amino Transf (AST/SGOT) 17 U/L (15-37) Alanine Aminotransferase (ALT/SGPT) 27 U/L (14-59) Alkaline Phosphatase 87 U/L (46-116) Total Protein 7.0 g/dL (6.4-8.2) Albumin 2.5 g/dL (3.4-5.0) Albumin/Globulin Ratio 0.6 (1.0-1.7) Glucose (Fingerstick) 154 mg/dL (70-99) Images CXR - IMPRESSION: Suspected trace pulmonary congestion. EKG - sinus tachycardia, RAD, IWMI age undetermined. No acute st/t abn. Assessment/Plan 1. Chest pain - CE negative x2, MPI in July as noted above. Normal cath 2010 at [facility]. 2. acute diastolic HF - suspect secondary to paroxysmal atrial fibrillation with prolonged episode of RVR on Wed. 3. paroxysmal atrial fibrillation - remains sinus rhythm currently. - Continue Rhythmol, Xarelto and cardizem. 4. hypertension - controlled 5. urosepsis - per PCP Suspect chest discomfort and dyspnea secondary to acute mild heart failure. Suggest limited echo for LV function. Lasix today with accurate I/O. Will add Ranexa. Management of urosepsis by IM. Outpatient MCT for atrial fibrillation burden. Outpatient follow up and evaluation. If recurrent chest pain despite antianginals, could consider cardiac catheterization. ISAIAS GRAY ADMINISTRATION PHYSICIAN Feb 04, 2018 09:34
[2018-02-04] MEDS ORDERED: DEXTROSE 50% 25 GM / 50ML DISP.SYRIN. IV PRN (10:00)
[2018-02-04] MEDS ORDERED: FUROSEMIDE 20 MG/2 ML VIAL IVP ONE (10:00)
--- NOTE | 2018-02-04 10:04 | HP ---
ADMIT DATE: 02/03/2018 HISTORY OF PRESENT ILLNESS: The patient is a 47-year-old female patient who came to the Emergency Room complaining of chest pain that she describes as chest discomfort or pressure that has been going on for the last few days. It is made worse by on exertion, but denied any nausea, vomiting, or diaphoresis. She had some palpitations and a racing heart yesterday and that has resolved spontaneously. She denied any radiation to her left arm or left shoulder. The pain comes and goes. There are no alleviating factors to her symptoms. She apparently has had cardiac catheterization in 2010 and had a stress test apparently more recently in July of this year and both of them were apparently unremarkable. PAST MEDICAL HISTORY: Significant for hypertension, atrial fibrillation. She also stated that she has borderline diabetes and she is not on any treatment for that. PAST SURGICAL HISTORY: Significant for two C-sections, bilateral carpal tunnel release, total abdominal hysterectomy, tonsillectomy and adenoidectomy. ALLERGIES: She has no known drug allergies. MEDICATIONS: She is currently on following medications: She is on Xarelto 20 mg once a day, propafenone 150 mg 3 times a day, and diltiazem 60 mg twice a day. FAMILY HISTORY: She has 1 older sister. She is 51 years old and she is known to have type 2 diabetes. Her father is still alive in his early 70s and is known to have atrial fibrillation. Her mother is still alive at age of 68 and known to have hypertension, atrial fibrillation, and hypothyroidism. SOCIAL HISTORY: She is , has 2 sons. Quit smoking in 1999, used to smoke many cigars. She does not drink alcohol or use any recreational drugs. She works in [employer] at [employer]. REVIEW OF SYSTEMS: The patient denied any blurring of vision, cataract, glaucoma, or macular degeneration. Denied any earache, tinnitus, or sensorineural deafness. Denied any nosebleeds, stuffy nose, or postnasal drip. Denied any sore throat, sore tongue, toothache, hoarseness of voice, or difficulty swallowing. Denied any nausea, vomiting, diarrhea, or constipation. Denied any hematemesis, melena, or hematochezia. She denied any dysuria, frequency, or hematuria. She did complain of chest pressure and shortness of breath, but denied any cough, phlegm, or hemoptysis. Denied any chills or rigors, but apparently has had fever and in fact, when she arrived yesterday to the Emergency Room her temperature was 103 Fahrenheit. PHYSICAL EXAMINATION: GENERAL: On examining her on arrival, she was slightly tachypneic. VITAL SIGNS: Her heart rate was 92, blood pressure was 149/89, temperature was 103.1, respiratory rate was 28, and oxygen saturation was 97% on room air. HEAD, EYES, EARS, NOSE, AND THROAT: Showed normocephalic, atraumatic. NECK: Supple. HEART: Showed normal first and second heart sounds. No gallop, rub, or murmur. CHEST: Clear to auscultation. No crepitation or rhonchi. ABDOMEN: Distended, soft, nontender. NEUROLOGIC: She was awake, alert, responding appropriately. All cranial nerves are intact. EXTREMITIES: She moves extremities without difficulty. She ambulates without assistance or assistive devices. LABORATORY DATA: On admission showed a white cell count of 11,000, hemoglobin 13, hematocrit 38, MCV 88, and platelet count of . Her chemistry showed a serum sodium of 135, potassium 3.9, chloride 100, bicarbonate 24, anion gap of 11, BUN 11, creatinine 1.1, estimated GFR was 53 mL per minute. Her glucose was 199. Lactic acid was 2.9. Calcium was 9.1, magnesium was 1.7. Total bilirubin, AST, ALT, alkaline phosphatase were normal. Her total protein was 7.5, albumin was 2.8, and serum lipase was 107. Urinalysis showed the urine was turbid with a pH of 5.5, specific gravity of 1.015 with large amount of protein, negative for glucose and ketones. There was large amount of blood, positive for nitrite and moderate amount of leukocyte esterase. There were 11-20 rbc's and more than 40 wbc's and many bacteria. Her chest x-ray showed that there is mild diffuse increased interstitial opacity. There is no consolidation, pleural effusion, or pneumothorax. There is prominent cardiac silhouette. There is a healed right posterior rib fracture. Her blood and urine were sent for culture and sensitivity, the result of which is still pending. Her first set of cardiac enzyme showed troponin to be less than 0.017 and her EKG showed that she was in sinus rhythm at a rate of 98 beats per minute. borderline right axis deviation, minimal. She has small inferior Q-waves. There are no acute ischemic ST-T changes. ASSESSMENT AND PLAN: The patient was admitted to do 2 more sets of cardiac enzyme and consult the Cardiology team and she was also started on IV Rocephin after obtaining the appropriate blood and urine culture. MARCIAL HSIEH MD DR: JIMMIE/george JOB#: [id number] / [id number]
[2018-02-04 10:49] VITALS: BP 117/63
[2018-02-04] MEDS: RANOLAZINE 500 MG TAB.ER.12H PO SCH ×2 (11:06→21:15)
[2018-02-04] MEDS: ACETAMINOPHEN 325 MG TABLET PO PRN ×2 (11:07→17:50)
[2018-02-04] MEDS: cefTRIAXone IV Push 1 GM VIAL. IVP SCH (14:39)
[2018-02-04 14:44] VITALS: BP 126/72
--- NOTE | 2018-02-04 16:15 | CARD ---
MR#: [id number] Date of Study: 02/04/2018 Ordering Physician: ISAIAS GRAY, Referring Physician: MARCIAL HSIEH Tech: DONALD Estrada APPROVED REPORT EXAM: Two-dimensional and M-mode echocardiogram with Doppler and color Doppler. Other Information Quality : FairHR: 87bpm Technically limited study due to body habitus. INDICATION Chest Pain 2D DIMENSIONS RVDd2.9 (2.9-3.5cm)Left Atrium(2D)3.0 (1.6-4.0cm) IVSd1.5 (0.7-1.1cm)Aortic Root(2D)2.5 (2.0-3.7cm) LVDd4.3 (3.9-5.9cm)LVOT Diameter1.8 (1.8-2.4cm) PWd1.6 (0.7-1.1cm)LVDs3.0 (2.5-4.0cm) FS (%) 29.0 %SV45.8 ml LVEF(%)56.1 (>50%) Aortic Valve AoV Peak Eb.229.6cm/sAoV VTI38.0cm AO Peak GR.21.1mmHgLVOT Peak Eb.163.7cm/s LVOT VTI 28.37cmAO Mean GR.12mmHg LUKE (VMAX)1.27pv0THJ (VTI)1.92cm2 Mitral Valve MV E Aufvoprl651.9cm/sMV DECEL [id number] MV A Jtulfvvg476.7cm/sE/A Ratio1.5 Pulmonary Valve PV Peak Wjfcsorf640.4cm/sPV Peak Grad.16mmHg Tricuspid Valve TR P. Umjwhxji429jo/sRAP PXEBQLRE2jlWh TR Peak Gr.47vaSjSSME01syIr Pulmonary Vein S1 Labcsevq35.3cm/sD2 Epuzguks45.4cm/s LEFT VENTRICLE The left ventricle is normal size. There is mild to moderate concentric left ventricular hypertrophy. The left ventricular systolic function is normal and the ejection fraction is within normal range. E F 55% There is grossly normal LV segmental wall motion. Technically difficult study. The left ventric ular diastolic function and filling is normal for age. RIGHT VENTRICLE The right ventricle is normal size. The right ventricular systolic function is normal. ATRIA The left atrium size is normal. The right atrium size is normal. The interatrial septum is intact wit h no evidence for an atrial septal defect or patent foramen ovale as noted on 2-D or Doppler imaging. AORTIC VALVE Not well visualized Doppler and Color Flow revealed no significant aortic regurgitation. There is no significant aortic valvular stenosis. There is no aortic valvular vegetation. MITRAL VALVE The mitral valve is thickened but opens well. There is no evidence of mitral valve prolapse. There is no mitral valve stenosis. Doppler and Color Flow revealed no mitral valve regurgitation noted. TRICUSPID VALVE The tricuspid valve is not well visualized. Doppler and Color Flow revealed trace to mild tricuspid r egurgitation. There is no pulmonary hypertension. The PA pressure was estimated at 24 mmHg. There is no tricuspid valve prolapse or vegetation. There is no tricuspid valve stenosis. PULMONIC VALVE The pulmonic valve is not well visualized. Doppler and Color Flow revealed no pulmonic valvular regur gitation. There is no pulmonic valvular stenosis. GREAT VESSELS The aortic root is normal in size. The IVC is dilated. The IVC collapses >50% with inspiration. PERICARDIAL EFFUSION There is no pleural effusion. There is no evidence of significant pericardial effusion. Critical Notification Critical Value: No <Conclusion> The left ventricular systolic function is normal and the ejection fraction is within normal range. EF 55% There is grossly normal LV segmental wall motion. Technically difficult study. Signed by : Gianfranco Briggs, Electronically Approved : 02/04/2018 16:13:38
[2018-02-04 19:38] VITALS: BP 100/63
--- NOTE | 2018-02-04 22:38 | PN ---
DATE: 02/04/2018 SUBJECTIVE: The patient is sitting propped up in bed, in no apparent distress. She said she continued to have chest pressure on exertion and shortness of breath. She has had 3 sets of cardiac enzymes, all of them were negative. She was seen by the Cardiology team and they recommended to treat her with IV diuretics and she apparently has had nuclear stress test in July 2017, which showed no evidence of stress induced EKG changes. Her ejection fraction was more than 60%. She has had cardiac catheterization in 2010 at [facility] which showed normal coronaries. PHYSICAL EXAMINATION: GENERAL: When I examined her today, she looked well and was clearly in no apparent respiratory distress, pale, but no jaundice, cyanosis, or thyromegaly. No jugular venous distention. No lower limb edema. VITAL SIGNS: Her heart rate was 71, blood pressure 143/79, temperature was 99.1, respiratory rate was 26 and oxygen saturation was 96% on room air. HEAD, EYES, EARS, NOSE AND THROAT: Showed normocephalic, atraumatic. NECK: Supple. HEART: Showed normal first and second heart sounds. No gallop, rub, or murmur. CHEST: Showed central trachea, equal bilateral expansion and air entry. I could not really appreciate any crepitation or rhonchi. ABDOMEN: Distended, soft, nontender. NEUROLOGIC: She is awake, alert, responding appropriately. All cranial nerves intact. She moves extremities without difficulty. She ambulates without assistance or assistive devices. Her intake was 720, no output was recorded. LABORATORY DATA: Her labwork this morning showed a serum sodium of 134, potassium 3.4, chloride 102, bicarbonate 24, anion gap of 8, BUN 11, creatinine 0.9, estimated GFR was 66 mL per minute. Her glucose 168, calcium was 9, magnesium was 1.7. Total bilirubin, AST, ALT, alkaline phosphatase were normal. Total protein 7, albumin 2.5. She has 2 more sets of cardiac enzymes that were negative. Her white cell count is 8800, hemoglobin 12.4, hematocrit 36, MCV 88, and platelet count 278,000 with normal manual differential. IMPRESSION: In summary, this is a 47-year-old female patient who came with chest pressure and shortness of breath. She apparently is known to have paroxysmal atrial fibrillation. Other medical problems include morbid obesity, hypertension, obstructive sleep apnea, and osteoarthritis. Her blood sugar is also high, so we will check her Accu-Cheks before meals and bedtime. We will check also hemoglobin A1c. She has also urosepsis as the most likely source of infection and fever for which she is already on Rocephin. The cultures and sensitivities are still pending at the time of this dictation. PLAN: To basically continue with IV ceftriaxone. Ranexa was added and we will replenish her magnesium and potassium. We will check her blood sugar today and decide on further management accordingly. MARCIAL HSIEH MD DR: JIMMIE/george JOB#: [id number] / [id number]
[2018-02-04 22:39] VITALS: BP 121/77
[2018-02-05 00:08] LABS: HEMOGLOBIN A1C 5.7 % (4.8-5.6)
[2018-02-05] MEDS: ACETAMINOPHEN 325 MG TABLET PO PRN ×2 (05:21→14:21)
[2018-02-05] MEDS: PROPAFENONE 150 MG TABLET. PO SCH ×3 (05:22→21:43)
[2018-02-05 05:58] VITALS: BP 109/69
--- NOTE | 2018-02-05 06:21 | EKG ---
[address] [address] Test Date: 2018-02-05 Test Time: 06:16:51 Pat Name: LISA JONES Department: Room: 117 A Gender: F Manager Functional: : 1970 Requested By: ISAIAS GRAY Order Number: [id number] Reading MD: Measurements Intervals Jackson Rate: 76 P: -40 FL: 174 QRS: 90 QRSD: 110 T: 33 QT: 374 QTc: 425 Interpretive Statements SINUS RHYTHM R-S TRANSITION ZONE IN V LEADS DISPLACED TO THE LEFT QRS(T) CONTOUR ABNORMALITY CONSIDER ANTEROSEPTAL MYOCARDIAL DAMAGE CONSISTENT WITH INFERIOR INFARCT PROBABLY OLD ABNORMAL ECG RI6.01 Unconfirmed report Compared to ECG 06/25/2017 17:39:01 Atrial fibrillation no longer present Myocardial infarct finding still present
[2018-02-05 06:46] LABS: BASO % 1 % (0-3); EOS % 1 % (0-3); HEMATOCRIT 34.5 % (36.0-47.0); HEMOGLOBIN 11.9 g/dL (12.0-15.5); LYMPH # 1.3 x10^3/uL (1.0-4.8); LYMPH % 16 % (24-48); MEAN CORPUSCULAR HEMOGLOBIN 31 pg (25-35); MEAN CORPUSCULAR HGB CONC 35 g/dL (31-37); MEAN CORPUSCULAR VOLUME 89 fL (79-100); MONO # 1.2 x10^3/uL (0.0-1.1); MONO % 15 % (0-9); NEUT # 5.4 x10^3uL (1.8-7.7); NEUT % 69 % (31-73); PLATELET COUNT 175 x10^3/uL (140-400); RED CELL DISTRIBUTION WIDTH 14.4 % (11.5-14.5); WHITE BLOOD COUNT 7.9 x10^3/uL (4.0-11.0)
[2018-02-05 06:55] LABS: GFR 59.2; MAGNESIUM 1.9 mg/dL (1.8-2.4); POTASSIUM 3.6 mmol/L (3.5-5.1)
[2018-02-05] MEDS: POTASSIUM CHLORIDE 20 MEQ TABLET.ER. PO SCH ×3 (09:02→20:49)
[2018-02-05] MEDS: LACTOBACILLUS RHAMNOSUS GG 1 CAPSULE. PO SCH ×2 (09:02→20:49)
[2018-02-05] MEDS: MAGNESIUM OXIDE 400 MG TABLET PO SCH ×2 (09:04→20:49)
[2018-02-05] MEDS: RIVAROXABAN 10 MG TABLET. PO SCH (09:04)
[2018-02-05] MEDS: RANOLAZINE 500 MG TAB.ER.12H PO SCH ×2 (09:04→20:49)
--- NOTE | 2018-02-05 09:12 | PN ---
DATE: 02/05/2018 SUBJECTIVE: The patient is resting slightly propped up in bed, in no apparent respiratory distress. She continued to spike her temperature and her urine and blood culture has grown gram-negative rods identified as E. coli--the sensitivity still pending at the time of this dictation. She responded very well to Lasix yesterday and has had no more shortness of breath on exertion. She underwent an echocardiogram, this was done yesterday. It showed that her left ventricular systolic function is normal with ejection fraction of 55% with grossly normal left ventricular segmental wall motion. OBJECTIVE: GENERAL: When I examined her this morning, she looked well and was clearly in no apparent respiratory distress. No pallor, jaundice, cyanosis, or thyromegaly. No jugular venous distension. No limb edema. VITAL SIGNS: Her heart rate was 86, blood pressure was 109/69, temperature was 100.3, respiratory rate was 24, and oxygen saturation was 94% on room air. HEAD, EYES, EARS, NOSE AND THROAT: Normocephalic, atraumatic. NECK: Supple. HEART: Showed normal first and second sounds. No gallop or murmur. CHEST: Clear to auscultation. No crepitation or rhonchi. ABDOMEN: Distended, soft, nontender. NEUROLOGIC: She was awake, alert, responding appropriately. Her cranial nerves intact. She moves extremities without difficulty. She ambulates without assistance or assistive devices. Her intake over the last 24 hours was 720, no output was recorded. LABORATORY DATA: As of this morning, her serum sodium is 135, potassium 3.6, chloride 102, bicarbonate 25, anion gap of 8, BUN 11, creatinine 1, estimated GFR was 59 mL per minute. Her glucose 115, calcium was 9, and magnesium was 1.9. White cell count is down to 7900, hemoglobin 12, hematocrit 34, MCV 89 and platelet count 275,000. Her urine culture showed growth of more than 100,000 colony forming units per mL of Escherichia coli. Her blood culture also showed growth of gram-negative rods seen in 2/4 bottles. ASSESSMENT: 1. This is a 47-year-old female patient who came in with chest pressure and shortness of breath that has responded very well to IV Lasix. 2. She is known to have paroxysmal atrial fibrillation. 3. Morbid obesity. 4. Hypertension. 5. Obstructive sleep apnea. 6. Osteoarthritis. 7. She is febrile and continued to spike a temperature. Both blood and urine culture has grown gram-negative rods identified as Escherichia coli, the sensitivity still pending at the time of this dictation. PLAN: My plan is to continue with IV ceftriaxone, continue with Ranexa. Continue to replenish her electrolytes, start the process of physical and occupational therapy. MARCIAL HSIEH MD DR: JIMMIE/george JOB#: [id number] / [id number]
[2018-02-05 11:05] VITALS: BP 110/70
--- NOTE | 2018-02-05 13:56 | PDOC ---
PROGRESS NOTES Diagnosis Problem Problems Medical Problems: (1) Chest pain Status: Acute (2) Fever, unknown origin Status: Acute (3) Hypokalemia Status: Acute Assessment 1. Chest pain -atypical features. Myocardial infarction has been ruled out. Lexiscan nuclear stress test in July 2017 did not show any significant ischemia. Patient had normal cath 2011 at [facility]. 2. Acute on chronic diastolic HF -currently resolved. 2-D echo showed normal LV systolic function. 3. Paroxysmal atrial fibrillation complaining of palpitations on presentation - remains sinus rhythm currently. - Continue Rhythmol, Xarelto and cardizem. Plan for outpatient event monitor to assess atrial fibrillation burden 4. Hypertension - controlled 5. UTI/sepsis- per PCP Subjective Denied any chest pain today. Feels better. Objective Vital Signs Date Time Temp Pulse Resp B/P (MAP) Pulse Ox O2 Delivery O2 Flow Rate FiO2 02/05/18 11:05 98.3 77 20 110/70 (83) 99 Room Air Intake and Output 02/05/18 07:00 Intake Total 1580 ml Balance 1580 ml Intake Oral 1580 ml # Voids 3 # Bowel Movements 1 Abdomen: Soft, No tenderness Heart: No murmurs Extremities: No edema General: Alert, No acute distress Lungs: Normal air movement Neck: Supple Psych/Mental Status: Mood NL Review of Relevant I have reviewed the following items randolph (where applicable) has been applied. Labs Laboratory Tests Test 02/03/18 14:30 02/03/18 16:25 02/03/18 18:01 02/03/18 21:35 White Blood Count 11.0 x10^3/uL (4.0-11.0) Red Blood Count 4.30 x10^6/uL (3.50-5.40) Hemoglobin 13.0 g/dL (12.0-15.5) Hematocrit 37.7 % (36.0-47.0) Mean Corpuscular Volume 88 fL (79-100) Mean Corpuscular Hemoglobin 30 pg (25-35) Mean Corpuscular Hemoglobin Concent 35 g/dL (31-37) Red Cell Distribution Width 14.3 % (11.5-14.5) Platelet Count 208 x10^3/uL (140-400) Neutrophils (%) (Auto) 81 % (31-73) Lymphocytes (%) (Auto) 8 % (24-48) Monocytes (%) (Auto) 10 % (0-9) Eosinophils (%) (Auto) 0 % (0-3) Basophils (%) (Auto) 1 % (0-3) Neutrophils # (Auto) 8.9 x10^3uL (1.8-7.7) Lymphocytes # (Auto) 0.9 x10^3/uL (1.0-4.8) Monocytes # (Auto) 1.1 x10^3/uL (0.0-1.1) Eosinophils # (Auto) 0.0 x10^3/uL (0.0-0.7) Basophils # (Auto) 0.1 x10^3/uL (0.0-0.2) Sodium Level 135 mmol/L (136-145) Potassium Level 2.9 mmol/L (3.5-5.1) Chloride Level 100 mmol/L (98-107) Carbon Dioxide Level 24 mmol/L (21-32) Anion Gap 11 (6-14) Blood Urea Nitrogen 11 mg/dL (7-20) Creatinine 1.1 mg/dL (0.6-1.0) Estimated GFR (Cockcroft-Gault) 53.0 BUN/Creatinine Ratio 10 (6-20) Glucose Level 199 mg/dL (70-99) Lactic Acid Level 2.9 mmol/L (0.4-2.0) 0.9 mmol/L (0.4-2.0) Calcium Level 9.1 mg/dL (8.5-10.1) Magnesium Level 1.7 mg/dL (1.8-2.4) Total Bilirubin 0.9 mg/dL (0.2-1.0) Aspartate Amino Transf (AST/SGOT) 22 U/L (15-37) Alanine Aminotransferase (ALT/SGPT) 36 U/L (14-59) Alkaline Phosphatase 97 U/L (46-116) Creatine Kinase 92 U/L (26-192) Creatine Kinase MB (Mass) < 0.5 ng/mL (0.0-3.6) Creatine Kinase MB Relative Index 0.5 % (0-4) Troponin I Quantitative < 0.017 ng/mL (0-0.055) < 0.017 ng/mL (0-0.055) < 0.017 ng/mL (0-0.055) ME-Vnh-I-Type Natriuretic Peptide 550 pg/mL (0-124) Total Protein 7.5 g/dL (6.4-8.2) Albumin 2.8 g/dL (3.4-5.0) Albumin/Globulin Ratio 0.6 (1.0-1.7) Lipase 107 U/L (73-393) Urine Collection Type Unknown Urine Color Eboni Urine Clarity Turbid Urine pH 5.5 Urine Specific Vendor 1.015 Urine Protein 100 mg/dl (NEG-TRACE) Urine Glucose (UA) Neg mg/dL (NEG) Urine Ketones (Stick) Neg mg/dL (NEG) Urine Blood Large (NEG) Urine Nitrite Pos (NEG) Urine Bilirubin Neg (NEG) Urine Urobilinogen Dipstick 8 mg/dL (0.2 mg/dL) Urine Leukocyte Esterase Mod (NEG) Urine RBC 11-20 /HPF (0-2) Urine WBC >40 /HPF (0-4) Urine Squamous Epithelial Cells None /LPF Urine Bacteria Many /HPF (0-FEW) Test 02/04/18 06:08 02/04/18 07:37 02/04/18 11:41 02/04/18 16:31 White Blood Count 8.8 x10^3/uL (4.0-11.0) Red Blood Count 4.12 x10^6/uL (3.50-5.40) Hemoglobin 12.4 g/dL (12.0-15.5) Hematocrit 36.3 % (36.0-47.0) Mean Corpuscular Volume 88 fL (79-100) Mean Corpuscular Hemoglobin 30 pg (25-35) Mean Corpuscular Hemoglobin Concent 34 g/dL (31-37) Red Cell Distribution Width 14.5 % (11.5-14.5) Platelet Count 178 x10^3/uL (140-400) Neutrophils (%) (Auto) 78 % (31-73) Lymphocytes (%) (Auto) 10 % (24-48) Monocytes (%) (Auto) 11 % (0-9) Eosinophils (%) (Auto) 0 % (0-3) Basophils (%) (Auto) 1 % (0-3) Neutrophils # (Auto) 6.9 x10^3uL (1.8-7.7) Lymphocytes # (Auto) 0.9 x10^3/uL (1.0-4.8) Monocytes # (Auto) 0.9 x10^3/uL (0.0-1.1) Eosinophils # (Auto) 0.0 x10^3/uL (0.0-0.7) Basophils # (Auto) 0.1 x10^3/uL (0.0-0.2) Segmented Neutrophils % 72 % (35-66) Band Neutrophils % 5 % (0-9) Lymphocytes % 12 % (24-48) Atypical Lymphocytes % (Manual) 1 % (0-0) Monocytes % 8 % (0-10) Eosinophils % 1 % (0-5) Basophils % 1 % (0-3) Toxic Granulation Slight Dohle Bodies Present Platelet Estimate Adequate (ADEQUATE) Polychromasia Slight Hypochromasia Sodium Level 134 mmol/L (136-145) Potassium Level 3.4 mmol/L (3.5-5.1) Chloride Level 102 mmol/L (98-107) Carbon Dioxide Level 24 mmol/L (21-32) Anion Gap 8 (6-14) Blood Urea Nitrogen 11 mg/dL (7-20) Creatinine 0.9 mg/dL (0.6-1.0) Estimated GFR (Cockcroft-Gault) 66.8 BUN/Creatinine Ratio 12 (6-20) Glucose Level 168 mg/dL (70-99) Hemoglobin A1c 5.7 % (4.8-5.6) Calcium Level 9.0 mg/dL (8.5-10.1) Magnesium Level 1.7 mg/dL (1.8-2.4) Total Bilirubin 1.0 mg/dL (0.2-1.0) Aspartate Amino Transf (AST/SGOT) 17 U/L (15-37) Alanine Aminotransferase (ALT/SGPT) 27 U/L (14-59) Alkaline Phosphatase 87 U/L (46-116) Total Protein 7.0 g/dL (6.4-8.2) Albumin 2.5 g/dL (3.4-5.0) Albumin/Globulin Ratio 0.6 (1.0-1.7) Glucose (Fingerstick) 154 mg/dL (70-99) 145 mg/dL (70-99) 118 mg/dL (70-99) Test 02/04/18 20:30 02/05/18 05:49 02/05/18 07:47 02/05/18 11:37 Glucose (Fingerstick) 220 mg/dL (70-99) 113 mg/dL (70-99) 136 mg/dL (70-99) White Blood Count 7.9 x10^3/uL (4.0-11.0) Red Blood Count 3.90 x10^6/uL (3.50-5.40) Hemoglobin 11.9 g/dL (12.0-15.5) Hematocrit 34.5 % (36.0-47.0) Mean Corpuscular Volume 89 fL (79-100) Mean Corpuscular Hemoglobin 31 pg (25-35) Mean Corpuscular Hemoglobin Concent 35 g/dL (31-37) Red Cell Distribution Width 14.4 % (11.5-14.5) Platelet Count 175 x10^3/uL (140-400) Neutrophils (%) (Auto) 69 % (31-73) Lymphocytes (%) (Auto) 16 % (24-48) Monocytes (%) (Auto) 15 % (0-9) Eosinophils (%) (Auto) 1 % (0-3) Basophils (%) (Auto) 1 % (0-3) Neutrophils # (Auto) 5.4 x10^3uL (1.8-7.7) Lymphocytes # (Auto) 1.3 x10^3/uL (1.0-4.8) Monocytes # (Auto) 1.2 x10^3/uL (0.0-1.1) Eosinophils # (Auto) 0.0 x10^3/uL (0.0-0.7) Basophils # (Auto) 0.0 x10^3/uL (0.0-0.2) Sodium Level 135 mmol/L (136-145) Potassium Level 3.6 mmol/L (3.5-5.1) Chloride Level 102 mmol/L (98-107) Carbon Dioxide Level 25 mmol/L (21-32) Anion Gap 8 (6-14) Blood Urea Nitrogen 11 mg/dL (7-20) Creatinine 1.0 mg/dL (0.6-1.0) Estimated GFR (Cockcroft-Gault) 59.2 Glucose Level 115 mg/dL (70-99) Calcium Level 9.0 mg/dL (8.5-10.1) Magnesium Level 1.9 mg/dL (1.8-2.4) Microbiology 02/03/18 Blood Culture - Final, Complete 02/03/18 Urine Culture - Preliminary, Resulted 02/03/18 Urine Culture Result 1 (BRANDI) - Preliminary, Resulted Medications Current Medications Aspirin (Children'S Aspirin) 324 mg 1X ONCE PO Last administered on 02/03/18at 15:05; Start 02/03/18 at 14:30; Stop 02/03/18 at 14:31; Status DC Nitroglycerin (Nitro-Bid Oint) 1 inch 1X ONCE TP Last administered on at 15:05; Start 02/03/18 at 14:30; Stop 02/03/18 at 14:31; Status DC Acetaminophen (Tylenol) 1,000 mg 1X ONCE PO Last administered on 02/03/18at 15: 04; Start 02/03/18 at 15:00; Stop 02/03/18 at 15:01; Status DC Sodium Chloride 1,000 ml @ 1,000 mls/hr 1X ONCE IV Last administered on at 15:26; Start 02/03/18 at 15:15; Stop 02/03/18 at 16:14; Status DC Magnesium Sulfate 100 ml @ 100 mls/hr 1X ONCE IV Last administered on at 15:37; Start 02/03/18 at 15:30; Stop 02/03/18 at 16:29; Status DC Potassium Chloride (Klor-Con) 40 meq 1X ONCE PO Last administered on 02/03/18at 15:35; Start 02/03/18 at 15:30; Stop 02/03/18 at 15:31; Status DC Potassium Chloride 100 ml @ 50 mls/hr 1X ONCE IV Last administered on at 15:36; Start 02/03/18 at 15:30; Stop 02/03/18 at 17:29; Status DC Ceftriaxone Sodium 1 gm/ Sodium Chloride 50 ml @ 100 mls/hr 1X ONCE IV ; Start 02/03/18 at 17:15; Stop 02/03/18 at 17:44; Status UNV Ceftriaxone Sodium (Rocephin) 1 gm 1X ONCE IVP Last administered on 8/2/18at 17:13; Start 02/03/18 at 17:30; Stop 02/03/18 at 17:31; Status DC Ceftriaxone Sodium 1 gm/ Sodium Chloride 50 ml @ 100 mls/hr Q24H IV ; Start 02/04/18 at 15:00; Stop 02/04/18 at 15:00; Status DC Potassium Chloride (Klor-Con) 40 meq 1X ONCE PO Last administered on 02/03/18 21:29; Start 02/03/18 at 19:00; Stop 02/03/18 at 19:16; Status DC Potassium Chloride (Klor-Con) 20 meq TID PO Last administered on 02/05/18 09:02 ; Start 02/04/18 at 09:00 Magnesium Oxide (Magnesium Oxide) 400 mg BID PO Last administered on 02/05/18 09:04; Start 02/03/18 at 21:00 Propafenone HCl (Rythmol) 225 mg Q8HRS PO Last administered on 02/05/18 05:22; Start 02/03/18 at 22:00 Rivaroxaban (Xarelto) 20 mg DAILY PO Last administered on 02/05/18 09:04; Start 02/04/18 at 09:00 Diltiazem HCl (Cardizem 24hr Cd) 120 mg DAILY PO Last administered on 02/05/18 09:02; Start 02/04/18 at 09:00 Ceftriaxone Sodium (Rocephin) 1 gm Q24H IVP Last administered on 02/04/18at 14:39 ; Start 02/04/18 at 15:00 Acetaminophen (Tylenol) 650 mg PRN Q4HRS PRN PO PAIN / TEMP Last administered on 02/05/18 05:21; Start 02/03/18 at 22:15 Lactobacillus Rhamnosus (Culturelle) 1 cap BID PO Last administered on 09:02; Start 02/04/18 at 09:00 Ranolazine (Ranexa) 500 mg BID PO Last administered on 02/05/18 09:04; Start at 10:00 Furosemide (Lasix) 20 mg 1X ONCE IVP Last administered on 02/04/18 11:06; Start 02/04/18 at 10:00; Stop 02/04/18 at 10:01; Status DC Dextrose 12.5 gm PRN Q15MIN PRN IV SEE COMMENTS; Start 02/04/18 at 10:00 Active Scripts Active Reported Diltiazem Hcl Tablet (Diltiazem Hcl) 60 Mg Tablet Mg PO BID LAST DOSE GIVEN: DATE: TIME: NEXT DOSE DUE: DATE: TIME: Xarelto (Rivaroxaban) 20 Mg Tablet 20 Mg PO DAILY LAST DOSE GIVEN: DATE: TIME: NEXT DOSE DUE: DATE: TIME: Propafenone Hcl 150 Mg Tablet 150 Mg PO TID LAST DOSE GIVEN: DATE: TIME: NEXT DOSE DUE: DATE: TIME: Vitals/I & O Vital Sign - Last 24 Hours 02/04/18 02/04/18 02/04/18 02/04/18 14:33 14:44 17:49 19:25 Temp 100.6 102.9 Pulse 86 86 B/P (MAP) 126/72 126/72 (90) Pulse Ox 97 O2 Delivery Room Air Room Air 02/04/18 02/04/18 02/04/18 02/04/18 19:38 21:15 21:15 22:39 Temp 99.9 99.9 Pulse 84 84 84 78 Resp 24 24 B/P (MAP) 100/63 (75) 100/63 100/63 121/77 (92) Pulse Ox 95 98 O2 Delivery Room Air Room Air 02/05/18 02/05/18 02/05/18 02/05/18 05:22 05:58 08:00 09:02 Temp 100.3 Pulse 85 86 86 Resp 24 B/P (MAP) 109/69 109/69 (82) 109/69 Pulse Ox 94 O2 Delivery Room Air Room Air 02/05/18 02/05/18 09:04 11:05 Temp 98.3 Pulse 86 77 Resp 20 B/P (MAP) 109/69 110/70 (83) Pulse Ox 99 O2 Delivery Room Air Intake and Output 02/04/18 02/04/18 02/05/18 15:00 23:00 07:00 Intake Total 480 ml 900 ml 200 ml Balance 480 ml 900 ml 200 ml RUTHANN RENEE MD Feb 05, 2018 13:55
[2018-02-05] MEDS: cefTRIAXone IV Push 1 GM VIAL. IVP SCH (14:21)
[2018-02-05 15:06] VITALS: BP 131/69
[2018-02-05 19:30] VITALS: BP 115/69
[2018-02-05 23:30] VITALS: BP 132/83
[2018-02-06] MEDS: PROPAFENONE 150 MG TABLET. PO SCH ×3 (05:58→21:35)
[2018-02-06 05:59] VITALS: BP 117/76
[2018-02-06 07:34] LABS: CALCIUM 8.9 mg/dL (8.5-10.1); CREATININE 0.9 mg/dL (0.6-1.0); GFR 66.8; MAGNESIUM 1.9 mg/dL (1.8-2.4); POTASSIUM 3.8 mmol/L (3.5-5.1)
[2018-02-06] MEDS: RANOLAZINE 500 MG TAB.ER.12H PO SCH ×2 (08:35→21:35)
[2018-02-06] MEDS: MAGNESIUM OXIDE 400 MG TABLET PO SCH ×2 (08:35→21:34)
[2018-02-06] MEDS: LACTOBACILLUS RHAMNOSUS GG 1 CAPSULE. PO SCH ×2 (08:35→21:34)
[2018-02-06] MEDS: RIVAROXABAN 10 MG TABLET. PO SCH (08:36)
[2018-02-06] MEDS: POTASSIUM CHLORIDE 20 MEQ TABLET.ER. PO SCH ×3 (08:37→21:34)
[2018-02-06 10:21] VITALS: BP 121/73
[2018-02-06] MEDS: cefTRIAXone IV Push 1 GM VIAL. IVP SCH (14:11)
[2018-02-06 15:21] VITALS: BP 124/77
[2018-02-06 19:15] VITALS: BP 120/70
--- NOTE | 2018-02-06 20:24 | PN ---
DATE: 02/06/2018 SUBJECTIVE: The patient is resting, slightly propped up in bed, in no apparent distress. She has had no more chest pain, shortness of breath, has been afebrile for almost 24 hours now. Her urine culture has grown more than 100,000 colony forming units per mL of Escherichia coli sensitive to all antibiotics except tetracycline. Her blood cultures are still pending at the time of this dictation. PHYSICAL EXAMINATION: GENERAL: When I examined her today, she looked well and was clearly in no apparent distress. She is sitting propped up in bed. No pallor, jaundice or cyanosis. No lymphadenopathy, no thyromegaly. No jugular venous distention. No lower limb edema. VITAL SIGNS: Her heart rate was 79, blood pressure 121/73, temperature was 97.8, respiratory rate 20, and oxygen saturation was 97%. HEAD, EYES, EARS, NOSE AND THROAT: Normocephalic, atraumatic. NECK: Supple. HEART: Showed normal first and second sounds. No gallop, rub or murmur. CHEST: Clear to auscultation. No crepitation or rhonchi. ABDOMEN: Distended, soft, nontender. NEUROLOGIC: She was awake, alert, responding appropriately. Her cranial nerves intact. She moves extremities without difficulty. She ambulates without assistance or assistive devices. LABORATORY DATA: Showed a white cell count 7900, hemoglobin 12, hematocrit 35, MCV 89, and a platelet count of 175,000 with normal manual differential. Her chemistry showed serum sodium 137, potassium 3.8, chloride 104, bicarbonate 29, anion gap of 4, BUN 13, creatinine 0.9, estimated GFR was 67 mL per minute. Her glucose was 84, calcium was 8.9, magnesium was 1.9. ASSESSMENT: 1. Chest pain, atypical. Her myocardial infarction was ruled out. She did have a stress test in July 2017. It did not show any significant ischemia and had a normal catheterization in 2010 at [facility]. 2. Acute on chronic diastolic congestive heart failure, currently resolved. Her 2-dimensional echocardiogram showed normal left ventricular systolic function, paroxysmal atrial fibrillation, currently in normal sinus rhythm. She is on Rythmol, Cardizem and Xarelto. 3. Hypertension, urinary tract infection, sepsis, resolving. Her urine culture grew more than 100,000 colony forming units per mL of Escherichia coli sensitive to antibiotic. Her blood culture is still pending at the time of this dictation. PLAN: To continue with IV Rocephin and hopefully, we will have the blood culture tomorrow and she can be discharged. MARCIAL HSIEH MD DR: JIMMIE/george JOB#: [id number] / [id number]
[2018-02-06 23:35] VITALS: BP 119/76
[2018-02-07 05:38] VITALS: BP 119/73
[2018-02-07] MEDS: PROPAFENONE 150 MG TABLET. PO SCH (05:59)
[2018-02-07] MEDS: RIVAROXABAN 10 MG TABLET. PO SCH (08:09)
[2018-02-07] MEDS: POTASSIUM CHLORIDE 20 MEQ TABLET.ER. PO SCH (08:09)
[2018-02-07] MEDS: LACTOBACILLUS RHAMNOSUS GG 1 CAPSULE. PO SCH (08:09)
[2018-02-07] MEDS: RANOLAZINE 500 MG TAB.ER.12H PO SCH (08:10)
[2018-02-07] MEDS: MAGNESIUM OXIDE 400 MG TABLET PO SCH (08:10)
--- NOTE | 2018-02-07 09:41 | PDOC ---
PROGRESS NOTES Diagnosis Problem Problems Medical Problems: (1) Chest pain Status: Acute (2) Fever, unknown origin Status: Acute (3) Hypokalemia Status: Acute Assessment Problems Medical Problems: (1) Chest pain Status: Acute (2) Fever, unknown origin Status: Acute (3) Hypokalemia Status: Acute 1. Chest pain -atypical AL ruled out. Recent MPI with fixed defect secondary to breast attenuation, without ischemia. Echo with normal EF and wall motion. Normal cath in 2010. Continue medical mgmt 2. Acute on chronic diastolic HF - currently resolved. 2-D echo showed normal LV systolic function. 3. Paroxysmal atrial fibrillation - remains sinus rhythm currently. - Continue Rhythmol, Xarelto and cardizem. Plan for outpatient MCT to assess atrial fibrillation burden 4. Hypertension - controlled 5. UTI/sepsis- per PCP Ok for DC from CV perspective. Continue medical mgmt. Outpatient MCT and follow up when complete (4-6 weeks). Subjective no new complaints Objective tele - sinus rhythm Vital Signs Date Time Temp Pulse Resp B/P (MAP) Pulse Ox O2 Delivery O2 Flow Rate FiO2 02/07/18 08:10 66 119/73 02/07/18 08:00 Room Air 02/07/18 05:38 97.8 18 98 Intake and Output 02/07/18 07:00 Intake Total 840 ml Balance 840 ml Intake Oral 840 ml # Voids 8 Abdomen: Normal bowel sounds, Soft, No tenderness Heart: Regular rate, Normal S1, Normal S2 Extremities: No cyanosis, Normal pulses General: Alert, Oriented X3, Cooperative, No acute distress HEENT: Atraumatic, EOMI Lungs: Clear to auscultation, Normal air movement Neck: No JVD Neuro: Normal speech, Strength at 5/5 X4 ext Psych/Mental Status: Mental status NL, Mood NL Review of Relevant I have reviewed the following items randolph (where applicable) has been applied. Labs Laboratory Tests Test 02/05/18 11:37 02/05/18 16:38 02/05/18 20:19 02/06/18 06:13 Glucose (Fingerstick) 136 mg/dL (70-99) 106 mg/dL (70-99) 101 mg/dL (70-99) Sodium Level 137 mmol/L (136-145) Potassium Level 3.8 mmol/L (3.5-5.1) Chloride Level 104 mmol/L (98-107) Carbon Dioxide Level 29 mmol/L (21-32) Anion Gap 4 (6-14) Blood Urea Nitrogen 13 mg/dL (7-20) Creatinine 0.9 mg/dL (0.6-1.0) Estimated GFR (Cockcroft-Gault) 66.8 Glucose Level 84 mg/dL (70-99) Calcium Level 8.9 mg/dL (8.5-10.1) Magnesium Level 1.9 mg/dL (1.8-2.4) Test 02/06/18 07:30 02/06/18 11:52 02/06/18 16:34 02/06/18 21:43 Glucose (Fingerstick) 81 mg/dL (70-99) 106 mg/dL (70-99) 86 mg/dL (70-99) 96 mg/dL (70-99) Microbiology 02/03/18 Blood Culture - Final, Complete 02/03/18 Urine Culture - Final, Complete 02/03/18 Urine Culture Result 1 (BRANDI) - Final, Complete 02/03/18 Antimicrobic Susceptibility - Final, Complete Medications Current Medications Aspirin (Children'S Aspirin) 324 mg 1X ONCE PO Last administered on 02/03/18at 15:05; Start 02/03/18 at 14:30; Stop 02/03/18 at 14:31; Status DC Nitroglycerin (Nitro-Bid Oint) 1 inch 1X ONCE TP Last administered on at 15:05; Start 02/03/18 at 14:30; Stop 02/03/18 at 14:31; Status DC Acetaminophen (Tylenol) 1,000 mg 1X ONCE PO Last administered on 02/03/18at 15: 04; Start 02/03/18 at 15:00; Stop 02/03/18 at 15:01; Status DC Sodium Chloride 1,000 ml @ 1,000 mls/hr 1X ONCE IV Last administered on at 15:26; Start 02/03/18 at 15:15; Stop 02/03/18 at 16:14; Status DC Magnesium Sulfate 100 ml @ 100 mls/hr 1X ONCE IV Last administered on at 15:37; Start 02/03/18 at 15:30; Stop 02/03/18 at 16:29; Status DC Potassium Chloride (Klor-Con) 40 meq 1X ONCE PO Last administered on 02/03/18at 15:35; Start 02/03/18 at 15:30; Stop 02/03/18 at 15:31; Status DC Potassium Chloride 100 ml @ 50 mls/hr 1X ONCE IV Last administered on at 15:36; Start 02/03/18 at 15:30; Stop 02/03/18 at 17:29; Status DC Ceftriaxone Sodium 1 gm/ Sodium Chloride 50 ml @ 100 mls/hr 1X ONCE IV ; Start 02/03/18 at 17:15; Stop 02/03/18 at 17:44; Status UNV Ceftriaxone Sodium (Rocephin) 1 gm 1X ONCE IVP Last administered on 02/03/18at 17:13; Start 02/03/18 at 17:30; Stop 02/03/18 at 17:31; Status DC Ceftriaxone Sodium 1 gm/ Sodium Chloride 50 ml @ 100 mls/hr Q24H IV ; Start 02/04/18 at 15:00; Stop 02/04/18 at 15:00; Status DC Potassium Chloride (Klor-Con) 40 meq 1X ONCE PO Last administered on 02/03/18at 21:29; Start 02/03/18 at 19:00; Stop 02/03/18 at 19:16; Status DC Potassium Chloride (Klor-Con) 20 meq TID PO Last administered on 02/07/18at 08:09 ; Start 02/04/18 at 09:00 Magnesium Oxide (Magnesium Oxide) 400 mg BID PO Last administered on 02/07/18at 08:10; Start 02/03/18 at 21:00 Propafenone HCl (Rythmol) 225 mg Q8HRS PO Last administered on 02/07/18at 05:59; Start 02/03/18 at 22:00 Rivaroxaban (Xarelto) 20 mg DAILY PO Last administered on 02/07/18 08:09; Start 02/04/18 at 09:00 Diltiazem HCl (Cardizem 24hr Cd) 120 mg DAILY PO Last administered on 02/07/18at 08:10; Start 02/04/18 at 09:00 Ceftriaxone Sodium (Rocephin) 1 gm Q24H IVP Last administered on 02/06/18at 14:11 ; Start 02/04/18 at 15:00 Acetaminophen (Tylenol) 650 mg PRN Q4HRS PRN PO PAIN / TEMP Last administered on 02/05/18at 14:21; Start 02/03/18 at 22:15 Lactobacillus Rhamnosus (Culturelle) 1 cap BID PO Last administered on at 08:09; Start 02/04/18 at 09:00 Ranolazine (Ranexa) 500 mg BID PO Last administered on 02/07/18at 08:10; Start at 10:00 Furosemide (Lasix) 20 mg 1X ONCE IVP Last administered on 02/04/18at 11:06; Start 02/04/18 at 10:00; Stop 02/04/18 at 10:01; Status DC Dextrose 12.5 gm PRN Q15MIN PRN IV SEE COMMENTS; Start 02/04/18 at 10:00 Active Scripts Active Reported Diltiazem Hcl Tablet (Diltiazem Hcl) 60 Mg Tablet Mg PO BID LAST DOSE GIVEN: DATE: TIME: NEXT DOSE DUE: DATE: TIME: Xarelto (Rivaroxaban) 20 Mg Tablet 20 Mg PO DAILY LAST DOSE GIVEN: DATE: TIME: NEXT DOSE DUE: DATE: TIME: Propafenone Hcl 150 Mg Tablet 150 Mg PO TID LAST DOSE GIVEN: DATE: TIME: NEXT DOSE DUE: DATE: TIME: Vitals/I & O Vital Sign - Last 24 Hours 02/06/18 02/06/18 02/06/18 02/06/18 10:21 14:10 15:21 19:15 Temp 97.8 98.2 98.9 Pulse 79 79 70 79 Resp 20 20 20 B/P (MAP) 121/73 (89) 121/73 124/77 (93) 120/70 (87) Pulse Ox 97 98 99 O2 Delivery Room Air Room Air Room Air 02/06/18 02/06/18 02/06/18 02/06/18 20:03 21:35 21:35 23:35 Temp 98.5 Pulse 79 79 71 Resp 20 B/P (MAP) 120/70 120/70 119/76 (90) Pulse Ox 95 O2 Delivery Room Air Room Air 02/07/18 02/07/18 02/07/18 02/07/18 05:38 05:59 08:00 08:10 Temp 97.8 Pulse 66 66 66 Resp 18 B/P (MAP) 119/73 (88) 119/73 119/73 Pulse Ox 98 O2 Delivery Room Air Room Air 02/07/18 08:10 Pulse 66 B/P (MAP) 119/73 Intake and Output 02/06/18 02/06/18 02/07/18 15:00 23:00 07:00 Intake Total 420 ml 420 ml Balance 420 ml 420 ml ISAIAS GRAY APRN Feb 07, 2018 09:41
[2018-02-07 10:56] VITALS: BP 130/82
[2018-02-07] MEDS ORDERED: AMOX1TAB61 PO (13:29)
--- NOTE | 2018-02-07 19:53 | DS ---
DATE OF DISCHARGE: 02/07/2018 HOSPITAL COURSE: The patient is a 47-year-old female patient, who came with complaint of chest pain that was atypical. She has had 3 sets of cardiac enzymes that ruled out myocardial infarction. She has had recent nuclear stress test and echocardiogram that showed that she has normal left ventricular systolic function, no evidence of ischemia and acute on chronic diastolic congestive heart failure, responded very well to IV diuretics and she was also septic and has grown more than 100,000 colony forming units per mL of gram-negative rods identified as Escherichia coli sensitive to all antibiotics. She also grew gram-negative rods in her blood culture, the result of which is still pending despite posted almost 4 days and they contacted the [facility]. Unfortunately, their cultures are processed at [place], [place] and so far the results still available, although the patient has been afebrile, hemodynamically stable with normal white cell count of more than 3 days now and therefore I decided to discharge the patient on broad-spectrum antibiotic and we will contact her once we have the culture results. PHYSICAL EXAMINATION: GENERAL: When I examined her today, she looked well and was clearly in no apparent respiratory distress. VITAL SIGNS: Her heart rate was 70, blood pressure 130/82, temperature was 98.1, respiratory rate 18, and oxygen saturation was 96%. HEAD, EYES, EARS, NOSE AND THROAT: Showed normocephalic, atraumatic. NECK: Supple. HEART: Showed normal first and second heart sounds with no gallop, rub or murmur. CHEST: Clear to auscultation. No crepitation or rhonchi. ABDOMEN: Distended, soft, nontender. No guarding or rigidity. No organomegaly. Hernial orifice intact. Bowel sounds normal. NEUROLOGICAL: She was grossly intact. LABORATORY DATA: Her lab work this morning showed a white cell count of 7900, hemoglobin 11, hematocrit 34, MCV 89 and platelet count of 175,000. Her chemistry showed a serum sodium 137, potassium 3.8, chloride 104, bicarbonate 29, anion gap of 4, BUN 13, creatinine 0.9, estimated GFR was 67 mL per minute. Her glucose was 84, calcium was 8.9, magnesium was 1.9. Her urine culture has grown more than 100,000 colony forming units per mL of gram-negative rods identified as Escherichia coli sensitive to almost all antibiotics except tetracycline. Her blood culture grew gram-negative rods unfortunately, although it is posted for almost 4 days now, the identification and sensitivity are still pending. However, clinically, the patient has remained afebrile, hemodynamically stable for 72 hours and with normal white cell count and therefore, a decision was made to discharge her home on Augmentin 875 mg twice a day with food for 7 more days. DISCHARGE MEDICATIONS: She was also discharged home to continue on diltiazem hydrochloride 60 mg twice a day, propafenone 150 mg 3 times a day, and rivaroxaban for Xarelto 20 mg daily. FINAL DISCHARGE DIAGNOSES: 1. Chest pain, myocardial infarction ruled out. 2. Sepsis secondary to urinary tract infection with growth of Escherichia coli; acute on chronic diastolic congestive heart failure, resolved; paroxysmal atrial fibrillation; dementia. The patient remained in sinus rhythm, currently on Rythmol, Cardizem and Xarelto. 3. Hypertension, well controlled. 4. Sepsis, urinary tract infection, resolved. She is now on Augmentin 875 mg twice a day. MARCIAL HSIEH MD DR: JIMMIE/george JOB#: [id number] / [id number]
== END 2018-02-07 14:45 | disposition home or self-care (01) | DRG 871 ==
LOC: ER 14:10 → 1 SOUTH 17:23
PROVIDERS: ADMIT Internal Medicine; ATTEND Internal Medicine
DX: A41.9 Sepsis, unspecified organism (principal); I50.33 Acute on chronic diastolic (congestive) heart failure; N39.0 Urinary tract infection, site not specified; Z68.42 Body mass index [BMI] 45.0-49.9, adult; E66.01 Morbid (severe) obesity due to excess calories; G47.33 Obstructive sleep apnea (adult) (pediatric); F03.90 Unspecified dementia, unspecified severity, without behavioral disturbance, psychotic disturbance, mood disturbance, and anxiety; I07.1 Rheumatic tricuspid insufficiency; E87.6 Hypokalemia; B96.20 Unspecified Escherichia coli [E. coli] as the cause of diseases classified elsewhere; R07.89 Other chest pain; I11.0 Hypertensive heart disease with heart failure; I48.0 Paroxysmal atrial fibrillation; M19.90 Unspecified osteoarthritis, unspecified site; Z82.49 Family history of ischemic heart disease and other diseases of the circulatory system; Z90.710 Acquired absence of both cervix and uterus; Z87.891 Personal history of nicotine dependence; Z83.3 Family history of diabetes mellitus; Z79.899 Other long term (current) drug therapy
CPT/HCPCS: 36415; 71045; 80048; 80053; 80061; 81001; 82553; 82947; 83036; 83605; 83690; 83735; 83880; 84484; 85007; 85025; 87040; 87086; 87186; 87205; 93005; 93306; 96365; 96366; 96368; 96375; J0696; J3475; J3480; 99285-25; J7030

== ENCOUNTER 2018-11-14 04:01 | Observation (INO) | payer OTHER ==
[~2018-11-14] VITALS: Ht 170.2 cm; Wt 140.6 kg
[~2018-11-14 04:01] MED LIST changes: +AMLO5TAB10 PO; -AMLO5TAB2 PO; +AMOX1TAB61 PO; +DILT60TA PO; +HYDR-3165 PO; -HYDR-971 PO; +RIVA20TA2 PO
--- NOTE | 2018-11-14 04:09 | ED.ADGEN ---
Past History Past Medical History: A-Fib, Hypertension Past Surgical History: , Hysterectomy, Tonsillectomy Smoking: Quit Greater Than 1 Year Alcohol Use: None Drug Use: None Adult General Chief Complaint Chief Complaint ".. I ve been having this chest .. and shoulder pain the last couple days.. it just seemed to be worse to night.. I have Afib.. that hard to control.. HPI HPI Patient is a 48 year old female who presents with above hx and complaints Lt shoulder / Chest pain. Pt. states chest pain is associated with some shortness of breath and feels like she has skipped beats. Pt. seen previously in ED for chest pain and Afib. Pt. reports compliance Afib meds and Xarelto. Pt. follows with Dr. Grant and TIA Colbert in [place] office. Pt. also follows with Dr. Horton cardiology. No recent travel or specific ill contacts. No hx of immunosuppression. Pt. does not smoke. Pain in the chest does have some chest wall and muscular components. Pt. noted pain is worse when ever she raises her arm above her head. Pt. Denies any trauma. 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 Pt. has had previous heart cath at [facility] - Dr. Benavidez approximately 10 yrs ago. Pharmacologic Stress Echo on 07/28/17 Dr. Horton - with no evidence of stress induced EKG changes. Normal wall motion with EF > 60%. Review of Systems Review of Systems Constitutional: Denies fever or chills [] Eyes: Denies change in visual acuity, redness, or eye pain [] HENT: Denies nasal congestion or sore throat [] Respiratory: Denies cough or shortness of breath [] Cardiovascular: No additional information not addressed in HPI [] GI: Denies abdominal pain, nausea, vomiting, bloody stools or diarrhea [] : Denies dysuria or hematuria [] Musculoskeletal: Denies back pain or joint pain [] Integument: Denies rash or skin lesions [] Neurologic: Denies headache, focal weakness or sensory changes [] Endocrine: Denies polyuria or polydipsia [] All other systems were reviewed and found to be within normal limits, except as documented in this note. Family History Family History Sister with DM, Mother and Father HTN and Afib. Current Medications Current Medications Current Medications Medications (Trade) Dose Ordered Sig/Ruma Start Time Stop Time Status Last Admin Dose Admin Lactated Ringer's 1,000 ml @ 1,000 mls/hr Q1H 11/14/18 04:30 11/14/18 05:29 DC 11/14/18 04:29 1,000 MLS/HR Nitroglycerin (Nitro-Bid Oint) 1 inch 1X ONCE 11/14/18 04:30 11/14/18 04:32 DC 11/14/18 04:28 1 INCH Allergies Allergies Allergies Coded Allergies Type Severity Reaction Last Updated Verified No Known Drug Allergies 05/22/15 No Physical Exam Physical Exam Constitutional: moderately acute distress, non-toxic appearance. [] HENT: Normocephalic, atraumatic, bilateral external ears normal, oropharynx moist, no oral exudates, nose normal. Poor dentition Eyes: PERRLA, EOMI, conjunctiva normal, no discharge. Glasses. Neck: Normal range of motion, no tenderness, supple, no stridor. More than 17 inches circumference Cardiovascular:Heart rate regular rhythm, no murmur []PMI slightly to the left Lungs & Thorax: Bilateral breath sounds equal apex on auscultation [] Abdomen: Bowel sounds normal, soft, no tenderness, no masses, no pulsatile masses. Obese. . Old surgical scars. Skin: Warm, dry, no erythema, no rash. Tattoos. Back: No tenderness, no CVA tenderness. [] Extremities: No tenderness, no cyanosis, no clubbing, ROM intact, ankles edema. [] No cording noted. Neurologic: Alert and oriented X 3, normal motor function, normal sensory function, no focal deficits noted. [] Psychologic: Affect anxious, , judgement normal, mood normal. [] Current Patient Data Vital Signs Vital Signs Date Time Temp Pulse Resp B/P (MAP) Pulse Ox O2 Delivery O2 Flow Rate FiO2 11/14/18 04:30 60 18 177/101 (126) 98 Room Air 11/14/18 04:04 98.3 Lab Results Laboratory Tests Test 11/14/18 04:13 White Blood Count 7.5 x10^3/uL (4.0-11.0) Red Blood Count 4.54 x10^6/uL (3.50-5.40) Hemoglobin 13.6 g/dL (12.0-15.5) Hematocrit 40.1 % (36.0-47.0) Mean Corpuscular Volume 88 fL (79-100) Mean Corpuscular Hemoglobin 30 pg (25-35) Mean Corpuscular Hemoglobin Concent 34 g/dL (31-37) Red Cell Distribution Width 14.2 % (11.5-14.5) Platelet Count 274 x10^3/uL (140-400) Neutrophils (%) (Auto) 52 % (31-73) Lymphocytes (%) (Auto) 34 % (24-48) Monocytes (%) (Auto) 9 % (0-9) Eosinophils (%) (Auto) 4 % (0-3) H Basophils (%) (Auto) 1 % (0-3) Neutrophils # (Auto) 3.9 x10^3uL (1.8-7.7) Lymphocytes # (Auto) 2.5 x10^3/uL (1.0-4.8) Monocytes # (Auto) 0.7 x10^3/uL (0.0-1.1) Eosinophils # (Auto) 0.3 x10^3/uL (0.0-0.7) Basophils # (Auto) 0.1 x10^3/uL (0.0-0.2) Prothrombin Time 11.7 SEC (9.4-11.4) H Prothrombin Time INR 1.2 (0.9-1.1) H PTT 33 SEC (23-33) D-Dimer (Carlene) 0.36 mg/L (0.00-0.50) Sodium Level 141 mmol/L (136-145) Potassium Level 3.4 mmol/L (3.5-5.1) L Chloride Level 105 mmol/L (98-107) Carbon Dioxide Level 29 mmol/L (21-32) Anion Gap 7 (6-14) Blood Urea Nitrogen 10 mg/dL (7-20) Creatinine 0.7 mg/dL (0.6-1.0) Estimated GFR (Cockcroft-Gault) 88.9 Glucose Level 125 mg/dL (70-99) H Calcium Level 9.4 mg/dL (8.5-10.1) Magnesium Level 1.9 mg/dL (1.8-2.4) Total Bilirubin 0.4 mg/dL (0.2-1.0) Direct Bilirubin 0.1 mg/dL (0.0-0.2) Aspartate Amino Transferase (AST) 59 U/L (15-37) H Alanine Aminotransferase (ALT) 58 U/L (14-59) Alkaline Phosphatase 96 U/L (46-116) Creatine Kinase 76 U/L (26-192) Troponin I Quantitative < 0.017 ng/mL (0-0.055) TQ-Jlk-G-Type Natriuretic Peptide 110 pg/mL (0-124) Total Protein 8.0 g/dL (6.4-8.2) Albumin 3.3 g/dL (3.4-5.0) L Lipase 146 U/L (73-393) EKG EKG My interpretation EKG shows a ventricular rate of 62. Irregular rhythm. No obvious P waves. Some nonspecific anterior lateral changes. Waving baseline. Findings consistent with A. fib.[] Radiology/Procedures Radiology/Procedures I interpretation chest x-ray shows[] no large infiltrate. Does appear to have an old rib fracture on right. Course & Med Decision Making Course & Med Decision Making Pertinent Labs and Imaging studies reviewed. (See chart for details) Heart Score 4-5. Discussed presentation, testing and tx. plan with Dr. Grant. Patient admitted tp Dr. Menon for further evaluation and cardiology consult. [] Final Impression Final Impression 1. Chest Pain 2. Hx. Afib 3. Accelerated HTN[] 4. Hx. of Sleep Apnea 5. Mild Hypokalemia 3.4 6. Morbid Obesity Dragon Disclaimer Dragon Disclaimer This electronic medical record was generated, in whole or in part, using a voice recognition dictation system. Discharge Summary Visit Information Final Diagnosis Problems Medical Problems: (1) Chest pain Status: Acute Brief Hospital Course Allergies Allergies Coded Allergies Type Severity Reaction Last Updated Verified No Known Drug Allergies 05/22/15 No Vital Signs Vital Signs Date Time Temp Pulse Resp B/P (MAP) Pulse Ox O2 Delivery O2 Flow Rate FiO2 11/14/18 04:30 60 18 177/101 (126) 98 Room Air 11/14/18 04:04 98.3 Lab Results Laboratory Tests Test 11/14/18 04:13 White Blood Count 7.5 x10^3/uL (4.0-11.0) Red Blood Count 4.54 x10^6/uL (3.50-5.40) Hemoglobin 13.6 g/dL (12.0-15.5) Hematocrit 40.1 % (36.0-47.0) Mean Corpuscular Volume 88 fL (79-100) Mean Corpuscular Hemoglobin 30 pg (25-35) Mean Corpuscular Hemoglobin Concent 34 g/dL (31-37) Red Cell Distribution Width 14.2 % (11.5-14.5) Platelet Count 274 x10^3/uL (140-400) Neutrophils (%) (Auto) 52 % (31-73) Lymphocytes (%) (Auto) 34 % (24-48) Monocytes (%) (Auto) 9 % (0-9) Eosinophils (%) (Auto) 4 % (0-3) Basophils (%) (Auto) 1 % (0-3) Neutrophils # (Auto) 3.9 x10^3uL (1.8-7.7) Lymphocytes # (Auto) 2.5 x10^3/uL (1.0-4.8) Monocytes # (Auto) 0.7 x10^3/uL (0.0-1.1) Eosinophils # (Auto) 0.3 x10^3/uL (0.0-0.7) Basophils # (Auto) 0.1 x10^3/uL (0.0-0.2) Prothrombin Time 11.7 SEC (9.4-11.4) Prothromb Time International Ratio 1.2 (0.9-1.1) Activated Partial Thromboplast Time 33 SEC (23-33) D-Dimer (Carlene) 0.36 mg/L (0.00-0.50) Sodium Level 141 mmol/L (136-145) Potassium Level 3.4 mmol/L (3.5-5.1) Chloride Level 105 mmol/L (98-107) Carbon Dioxide Level 29 mmol/L (21-32) Anion Gap 7 (6-14) Blood Urea Nitrogen 10 mg/dL (7-20) Creatinine 0.7 mg/dL (0.6-1.0) Estimated GFR (Cockcroft-Gault) 88.9 Glucose Level 125 mg/dL (70-99) Calcium Level 9.4 mg/dL (8.5-10.1) Magnesium Level 1.9 mg/dL (1.8-2.4) Total Bilirubin 0.4 mg/dL (0.2-1.0) Direct Bilirubin 0.1 mg/dL (0.0-0.2) Aspartate Amino Transf (AST/SGOT) 59 U/L (15-37) Alanine Aminotransferase (ALT/SGPT) 58 U/L (14-59) Alkaline Phosphatase 96 U/L (46-116) Creatine Kinase 76 U/L (26-192) Troponin I Quantitative < 0.017 ng/mL (0-0.055) ID-Pxb-D-Type Natriuretic Peptide 110 pg/mL (0-124) Total Protein 8.0 g/dL (6.4-8.2) Albumin 3.3 g/dL (3.4-5.0) Lipase 146 U/L (73-393) Brief Hospital Course Ms. Douglass is a 48 old female who presented with chest pain. Admitted Dr. Grant, and cardiology consult. Discharge Information Condition at Discharge: Improved, Stable Dischare Medications Current Medications Lactated Ringer's 1,000 ml @ 1,000 mls/hr Q1H IV Last administered on 11/14/18at 04:29; Admin Dose 1,000 MLS/HR; Start 11/14/18 at 04:30; Stop 11/14/18 at 05:29; Status DC Nitroglycerin (Nitro-Bid Oint) 1 inch 1X ONCE TP Last administered on 11/14/18at 04:28; Admin Dose 1 INCH; Start 11/14/18 at 04:30; Stop 11/14/18 at 04:32; Status DC Active Scripts Active Augmentin 875-125 Tablet (Amoxicillin/Potassium Clav) 1 Each Tablet 1 Tab PO BID Reported Diltiazem Hcl Tablet (Diltiazem Hcl) 60 Mg Tablet Mg PO BID LAST DOSE GIVEN: DATE: TODAY TIME: AM NEXT DOSE DUE: DATE: TODAY TIME: PM Xarelto (Rivaroxaban) 20 Mg Tablet 20 Mg PO DAILY LAST DOSE GIVEN: DATE: TODAY TIME: AM NEXT DOSE DUE: DATE: TOMORROW TIME: AM Propafenone Hcl 150 Mg Tablet 150 Mg PO TID LAST DOSE GIVEN: DATE: TODAY TIME: AM NEXT DOSE DUE: DATE: TODAY TIME: AFTERNOON Dragon Disclaimer This chart was dictated in whole or in part using Voice Recognition software in a busy, high-work load, and often noisy Emergency Department environment. It may contain unintended and wholly unrecognized errors or omissions. GEETA QUINONEZ MD November 14, 2018 04:08
[2018-11-14 04:28] LABS: BASO # 0.1 x10^3/uL (0.0-0.2); BASO % 1 % (0-3); EOS # 0.3 x10^3/uL (0.0-0.7); EOS % 4 % (0-3); HEMATOCRIT 40.1 % (36.0-47.0); HEMOGLOBIN 13.6 g/dL (12.0-15.5); LYMPH # 2.5 x10^3/uL (1.0-4.8); LYMPH % 34 % (24-48); MEAN CORPUSCULAR HEMOGLOBIN 30 pg (25-35); MEAN CORPUSCULAR HGB CONC 34 g/dL (31-37); MEAN CORPUSCULAR VOLUME 88 fL (79-100); MONO # 0.7 x10^3/uL (0.0-1.1); MONO % 9 % (0-9); NEUT # 3.9 x10^3uL (1.8-7.7); NEUT % 52 % (31-73); PLATELET COUNT 274 x10^3/uL (140-400); RED BLOOD COUNT 4.54 x10^6/uL (3.50-5.40); RED CELL DISTRIBUTION WIDTH 14.2 % (11.5-14.5); WHITE BLOOD COUNT 7.5 x10^3/uL (4.0-11.0)
[2018-11-14] MEDS ORDERED: IV RINGERS SOLUTION,LACTATED 1,000 ML IV SCH (04:30)
[2018-11-14] MEDS ORDERED: NITROGLYCERIN OINT 1 GM PACKET. TP ONE (04:30)
[2018-11-14 04:49] LABS: ALBUMIN 3.3 g/dL (3.4-5.0); CALCIUM 9.4 mg/dL (8.5-10.1); CREATININE 0.7 mg/dL (0.6-1.0); DIRECT BILIRUBIN 0.1 mg/dL (0.0-0.2); GFR 88.9; MAGNESIUM 1.9 mg/dL (1.8-2.4); POTASSIUM 3.4 mmol/L (3.5-5.1); TOTAL BILIRUBIN 0.4 mg/dL (0.2-1.0)
[2018-11-14] MEDS ORDERED: ONDANSETRON PF 4 MG/2 ML VIAL. IV PRN (05:15)
[2018-11-14 05:54] VITALS: BP 159/83
[2018-11-14] MEDS ORDERED: POTASSIUM CHLORIDE 20 MEQ/15 ML ORAL LIQUID. PO ONE (06:00)
--- NOTE | 2018-11-14 08:33 | RAD ---
CHEST PA LATERAL History: Chest pain, atrial fibrillation Comparison: February 03, 2018 Findings: 2 views of the chest are submitted. There is no new lobar consolidation, pleural fluid, pneumothorax. There is again old right posterolateral seventh rib fracture, also likely old right eighth rib fracture.Cardiac silhouette is stable. Impression: 1. No acute radiographic abnormality is identified. Electronically signed by: Andrew Jenkins MD (11/14/2018 8:30 AM) [id number]
[2018-11-14] MEDS ORDERED: NITROGLYCERIN OINT 1 GM PACKET. TP SCH (09:00)
--- NOTE | 2018-11-14 10:17 | HP ---
ADMIT DATE: 11/14/2018 HISTORY OF PRESENT ILLNESS: The patient is a 48-year-old female with history of atrial fibrillation for the last 2 days prior to admission has been having chest tightness and pain in her left shoulder, unable to raise it, but also notes some shortness of breath with some skipped beats. The patient has a history as noted of atrial fibrillation. She is on Xarelto. The patient also sees Dr. Horton. The patient was seen in the Emergency Room because of her symptoms and her irregular heart rhythm. The patient was admitted for rule out AL for further evaluation of her coronary status. PAST MEDICAL HISTORY: Tonsillectomy, adenoidectomy, cardiac catheterization, hypertension, sleep apnea, x 2, bilateral release symptoms of her wrist, hysterectomy, tubal ligation. ALLERGIES: The patient has no known allergies. MEDICATIONS: Noted and reconciled including Augmentin 875 one b.i.d., Xarelto 20 mg daily, propafenone 150 mg t.i.d., diltiazem 60 mg t.i.d. FAMILY HISTORY: Mother has obesity, atrial fibrillation, hypertension, diabetes. Father with hypertension, cardiovascular disease, and one son with bipolar disease. SOCIAL HISTORY: The patient denies smoking, alcohol, or drug use. She is a full code. REVIEW OF SYSTEMS: The patient does have some shortness of breath and chest tightness and difficulty moving her left arm. The patient otherwise denies headaches, visual change, blurred vision, double vision. Denies any abdominal pain. Denies nausea, vomiting, melena, hematochezia, hematemesis. Denies diaphoresis and neurologically baseline. PHYSICAL EXAMINATION: GENERAL: This is a pleasant white female, morbidly obese. VITAL SIGNS: Blood pressure initially 193/99, came down to 159/83, respiratory rate 20, pulse 60, afebrile. HEENT: The patient's head was atraumatic, normocephalic. Eyes: PERRLA without jaundice. Mouth and throat were normal. NECK: Supple, no JVD or thyromegaly. LUNGS: Diminished throughout, poor movement of air. CARDIOVASCULAR: Regular sinus rhythm, S1, S2, without murmur, rub, or extra heart sounds. ABDOMEN: Soft, nontender, no rebounding or guarding. Positive bowel sounds, no hepatosplenomegaly was noted. EXTREMITIES: No clubbing, cyanosis, nor edema. NEUROLOGIC: The patient was alert and oriented x 3. ____ LABORATORY DATA: In any case, the patient's lab demonstrated CBC was normal. Chemistry showed slightly low potassium at 3.4. Cardiac enzymes so far negative. Slight elevation of the AST. INR stable. Chest x-ray was unremarkable. The patient will be admitted for rule out AL protocol and make further evaluation on her as indicated along with Cardiology. IMPRESSION: Chest pain, history of atrial fibrillation, history of hypertensive urgency. morbid obesity. PLAN: As above. SHAWN HAWLEY MD DR: YASMANI/george JOB#: [id number] / [id number]
[2018-11-14 10:41] VITALS: BP 158/90
[2018-11-14] MEDS ORDERED: RIVAROXABAN 10 MG TABLET. PO SCH (11:30)
[2018-11-14] MEDS ORDERED: dilTIAZem HCL 30 MG TABLET PO SCH (11:30)
[2018-11-14 13:05] LABS: THYROID STIM HORMONE (TSH) 3.8 uIU/mL (0.358-3.740)
[2018-11-14] MEDS ORDERED: PROPAFENONE 150 MG TABLET. PO SCH (14:00)
--- NOTE | 2018-11-14 17:05 | EKG ---
[address] [address] Test Date: 2018-11-14 Test Time: 04:11:40 Pat Name: LISA JONES Department: Room: 120 A Gender: F [employer]: : 1970 Requested By: SHAWN HAWLEY Order Number: [id number] Reading MD: Marv Horton Measurements Intervals [place] Rate: 62 P: IN: QRS: 52 QRSD: 108 T: 105 QT: 412 QTc: 420 Interpretive Statements SINUS RHYTHM Electronically Signed On 12-09-2018 11:37:33 CDT by Marv Horton
--- NOTE | 2018-11-14 17:05 | EKG ---
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
--- NOTE | 2018-11-15 19:05 | PDOC ---
PROVIDER NOTE PROVIDER NOTE PROVIDER NOTE Cardio consultation note: Late entry for 11/14/2018 Reason for consultation chest pain History of present illness Keiry is a 48-year-old woman who comes into the hospital in the setting of pain with movement. She thinks that she may have slept the wrong way but has had essentially pressure in her neck and her left shoulder which is exacerbated with movement. She does not have any anginal symptoms. Denies any syncope or palpitations. She was recently seen in the office approximately one month ago. Initial workup in the hospital has thus far been unremarkable for any cardiac issues. Past medical history #1. Hypertension 2. Paroxysmal atrial fibrillation 3. Obstructive sleep apnea Surgical history notable for tonsillectomy, section, tubal ligation, carpal tunnel release and hemorrhoidectomy Family history notable for a mother who has hypertension and a father without any significant cardiac issues. Social history she is a former smoker and denies any alcohol, illicit drug use or significant alcohol abuse. She is . She does have children. Allergies no known drug allergies Current cardiac medications: Diltiazem 120 mg daily, propanolol 225 mammograms 3 times a day, several toe 20 mg daily Review of systems is negative for 10 out of 14 systems reviewed unless otherwise mentioned above in history of present illness The patient appeared well nourished and normally developed. Head exam is unremarkable. No scleral icterus or corneal arcus noted. Neck is without jugular venous distension, thyromegaly, or carotid bruits. Carotid upstrokes are brisk bilaterally. Lungs are clear to auscultation and percussion. Cardiac exam reveals the PMI to be normally sized and situated. Rhythm is regular. First and second heart sounds normal. No murmurs, rubs or gallops. Abdominal exam reveals normal bowel sounds, no masses, no organomegaly and no aortic enlargement. Extremities are nonedematous and both femoral and pedal pulses are normal. Msk: No traumua Neuro: No focal deficits Diagnostic testing: Cardiac enzymes and EKG unremarkable. Impression: XL 1. Noncardiac chest pain 2. Proximally fibrillation on an to regulation 3. Hypertension well controlled Recommendations: 1. Continue treatment of her muscular skeletal pain with muscle relaxants and pain medications as necessary per PCP No further cardio vascular testing necessary at this time. Thank you for this consultation JEFF WALSH MD November 15, 2018 19:05
== END 2018-11-14 13:36 | disposition hospice, home (50) ==
LOC: ER 04:01 → INTOOBSV 04:30 → 1 SOUTH 04:30
PROVIDERS: ADMIT Family Medicine; ATTEND Family Medicine
DX: R07.89 Other chest pain (principal); I48.0 Paroxysmal atrial fibrillation; I10 Essential (primary) hypertension; G47.33 Obstructive sleep apnea (adult) (pediatric); E66.01 Morbid (severe) obesity due to excess calories; E87.6 Hypokalemia; Z79.01 Long term (current) use of anticoagulants; Z82.49 Family history of ischemic heart disease and other diseases of the circulatory system; Z83.3 Family history of diabetes mellitus; Z87.891 Personal history of nicotine dependence; Z90.710 Acquired absence of both cervix and uterus
CPT/HCPCS: 36415; 71046; 80048; 80061; 80076; 82550; 83690; 83735; 83880; 84443; 84484; 85025; 85379; 85610; 85730; 93005; 99284; G0378; J7120; G0379

== ENCOUNTER → 2019-03-16 | Outpatient (CLI) | payer OTHER ==
--- NOTE | 2019-03-16 14:34 | RAD ---
EXAM: AP, lateral and tangential patellar views both knees DATE: 03/16/2019 12:00 AM INDICATION: Bilateral knee pain COMPARISON: No Prior FINDINGS: Left knee: Severe medial joint space narrowing with tricompartmental osteophytes. No knee joint effusion. Patellar enthesopathy. Neutral patellar tracking. Right knee: Moderate medial compartment joint space narrowing with small medial compartment osteophytes. Neutral patellar tracking. Patellar enthesopathy. No right knee joint effusion. IMPRESSION: 1. 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 2. Patellar enthesopathy bilaterally. 3. No right or left knee joint effusion. Electronically signed by: Eriberto Salinas MD (03/16/2019 2:31 PM) [facility]
== END | disposition home or self-care (01) ==
LOC: DXRAD 12:45
PROVIDERS: ATTEND Orthopaedic Surgery
DX: M25.762 Osteophyte, left knee (principal); M25.761 Osteophyte, right knee; M25.862 Other specified joint disorders, left knee; M25.861 Other specified joint disorders, right knee; M76.892 Other specified enthesopathies of left lower limb, excluding foot; M76.891 Other specified enthesopathies of right lower limb, excluding foot
CPT/HCPCS: 73560; 73565

== ENCOUNTER → 2019-05-02 | Outpatient (CLI) | payer OTHER ==
--- NOTE | 2019-05-02 11:02 | CARD ---
MR#: [id number] Date of Study: 05/02/2019 Ordering Physician: RUTHANN HORTON, Referring Physician: RUTHANN HORTON Tech: Karina Jeffries RDCS APPROVED REPORT EXAM: Two-dimensional and M-mode echocardiogram with Doppler and color Doppler. Other Information Quality : Technically LimitedHR: 55bpm Rhythm : BradycardiaTechnically limited study due to body habitus. INDICATION Atrial Fibrillation 2D DIMENSIONS RVDd3.0 (2.9-3.5cm)Left Atrium(2D)4.2 (1.6-4.0cm) IVSd1.1 (0.7-1.1cm)Aortic Root(2D)2.9 (2.0-3.7cm) LVDd5.1 (3.9-5.9cm)LVOT Diameter2.0 (1.8-2.4cm) PWd1.2 (0.7-1.1cm)LVDs3.1 (2.5-4.0cm) FS (%) 39.4 %SV87.1 ml LVEF(%)69.5 (>50%) M-Mode DIMENSIONS Left Atrium(MM)3.95 (2.5-4.0cm)Aortic Root3.43 (2.2-3.7cm) Aortic Valve AoV Peak Eb.156.3cm/sAoV VTI33.4cm AO Peak GR.9.8mmHgLVOT Peak Eb.117.3cm/s LVOT VTI 28.64cmAO Mean GR.4mmHg LUKE (VMAX)2.09sm4GPL (VTI)2.77cm2 Mitral Valve MV E Czvtsotm124.1cm/sMV DECEL [id number] MV A Ibqiwdwc04.5cm/sE/A Ratio2.3 Pulmonary Valve PV Peak Ihqbsszz579.2cm/sPV Peak Grad.5mmHg LEFT VENTRICLE The left ventricle is normal size. There is mild concentric left ventricular hypertrophy. The left ve ntricular systolic function is normal. The Ejection Fraction is 60-65%. There is normal LV segmental wall motion. Transmitral Doppler flow pattern is Grade II-pseudonormal filling dynamics. RIGHT VENTRICLE The right ventricle is normal size. There is normal right ventricular wall thickness. The right ventr icular systolic function is normal. ATRIA The left atrium is mildly dilated. The right atrium size is normal. The interatrial septum is intact with no evidence for an atrial septal defect or patent foramen ovale as noted on 2-D or Doppler imagi ng. AORTIC VALVE The aortic valve is normal in structure and function. The aortic valve is trileaflet. Doppler and Col or Flow revealed no significant aortic regurgitation. There is no significant aortic valvular stenosi s. MITRAL VALVE The mitral valve is normal in structure and function. There is no evidence of mitral valve prolapse. There is no mitral valve stenosis. Doppler and Color-flow revealed trace to mild mitral regurgitation . TRICUSPID VALVE The tricuspid valve is normal in structure and function. Doppler and Color Flow revealed no tricuspid valve regurgitation noted. There is no tricuspid valve prolapse or vegetation. There is no tricuspid valve stenosis. PULMONIC VALVE The pulmonic valve is not well visualized. GREAT VESSELS The aortic root is normal in size. The ascending aorta is normal in size. The IVC is normal in size a nd collapses >50% with inspiration. PERICARDIAL EFFUSION There is no evidence of significant pericardial effusion. Critical Notification Critical Value: No <Conclusion> The left ventricular systolic function is normal. The Ejection Fraction is 60-65%. There is normal LV segmental wall motion. Transmitral Doppler flow pattern is Grade II-pseudonormal filling dynamics. Trace to mild mitral regurgitation. There is no evidence of significant pericardial effusion. Signed by : Ruthann Horton, Electronically Approved : 05/02/2019 11:01:53
--- NOTE | 2019-05-02 12:43 | RAD ---
MR#: [id number] Date of Study: 05/02/2019 Ordering Physician: RUTHANN RENEE, Referring Physician: Reagan VIRAMONTES: Shawnee Dickey RDMS RVT APPROVED REPORT Patient Location : OP Indications Lower Extremity Edema : Bilateral Grayscale images of the saphenofemoral junctions are grossly unremarkable. The right great saphenous vein measures 9.1 mm and has no evidence of reflux. The left great saphenous vein measures 4.7 mm and has no evidence of reflux. Bilateral lesser saphenous veins do not show any evidence of reflux. Critical Notification Critical Value: No <Conclusion> No significant lower extremity venous reflux. Signed by : Gianrfanco Briggs, Electronically Approved : 05/02/2019 12:42:32
== END | disposition home or self-care (01) ==
LOC: US 08:21
PROVIDERS: ATTEND Internal Medicine Cardiovascular Disease
DX: I34.0 Nonrheumatic mitral (valve) insufficiency (principal); I11.9 Hypertensive heart disease without heart failure; R60.0 Localized edema
CPT/HCPCS: 93306; 93970

== ENCOUNTER → 2020-07-02 | Outpatient (CLI) | payer OTHER ==
[~2020-07-02] MED LIST changes: +AMLO-186 PO; -AMLO5TAB10 PO
--- NOTE | 2020-07-02 14:23 | CARD ---
MR#: [id number] Date of Study: 07/02/2020 Ordering Physician: RUTHANN HORTON, Referring Physician: RUTHANN HORTON, Tech: Catina Pablo APPROVED REPORT EXAM: Two-dimensional and M-mode echocardiogram with Doppler and color Doppler. Other Information Quality : AverageHR: 55bpm Technically limited study due to body habitus. INDICATION Atrial Fibrillation RISK FACTORS Hypertension Smoking 2D DIMENSIONS RVDd2.7 (2.9-3.5cm)Left Atrium(2D)4.3 (1.6-4.0cm) IVSd1.2 (0.7-1.1cm)Aortic Root(2D)3.1 (2.0-3.7cm) LVDd5.3 (3.9-5.9cm)LVOT Diameter2.0 (1.8-2.4cm) PWd1.2 (0.7-1.1cm)LVDs3.2 (2.5-4.0cm) FS (%) 40.2 %SV96.8 ml LVEF(%)70.4 (>50%) Aortic Valve AoV Peak Eb.200.5cm/sAoV VTI42.9cm AO Peak GR.16.1mmHgLVOT Peak Eb.150.7cm/s LVOT VTI 34.62cmAO Mean GR.8mmHg LUKE (VMAX)2.11hl7FDW (VTI)2.51cm2 Mitral Valve MV E Ahanelsd938.0cm/sMV DECEL GCMJ821fs MV A Eerltysa65.7cm/sE/A Ratio1.1 Pulmonary Valve PV Peak Wttqzhhn528.5cm/sPV Peak Grad.4mmHg Tricuspid Valve TR P. Ghabzjsz474pw/sRAP XUHDHFZO3brJo TR Peak Gr.71jpXrECYK47jdBq Pulmonary Vein S1 Jsnofcjy80.7cm/sD2 Odiqqdod64.5cm/s LEFT VENTRICLE The left ventricle is normal size. There is mild concentric left ventricular hypertrophy. The left ve ntricular systolic function is normal. The Ejection Fraction is 60%. There is normal LV segmental wal l motion. Transmitral Doppler flow pattern is Grade II-pseudonormal filling dynamics. RIGHT VENTRICLE The right ventricle is normal size. There is normal right ventricular wall thickness. The right ventr icular systolic function is normal. ATRIA The left atrium is borderline dilated. The right atrium size is normal. The interatrial septum is int act with no evidence for an atrial septal defect or patent foramen ovale as noted on 2-D or Doppler i maging. AORTIC VALVE The aortic valve is normal in structure and function. Doppler and Color Flow revealed no significant aortic regurgitation. There is no significant aortic valvular stenosis. Calculated aortic valve area is 2.6 cm2 with maximum pressure gradient of 16 mmHg and mean pressure gradient of 8 mmHg. MITRAL VALVE The mitral valve is normal in structure and function. There is no evidence of mitral valve prolapse. There is no mitral valve stenosis. Doppler and Color Flow revealed no mitral valve regurgitation note d. TRICUSPID VALVE The tricuspid valve is normal in structure and function. Doppler and Color Flow revealed no tricuspid valve regurgitation noted. There is no tricuspid valve stenosis. PULMONIC VALVE The pulmonic valve is not well visualized. Doppler and Color Flow revealed trace pulmonic valvular re gurgitation. GREAT VESSELS The aortic root is normal in size. The IVC was not visualized. PERICARDIAL EFFUSION There is no evidence of significant pericardial effusion. Critical Notification Critical Value: No <Conclusion> The left ventricular systolic function is normal. The Ejection Fraction is 60%. There is normal LV segmental wall motion. Transmitral Doppler flow pattern is Grade II-pseudonormal filling dynamics. There is no evidence of significant pericardial effusion. Signed by : Ruthann Horton, Electronically Approved : 07/02/2020 14:23:19
== END ==
LOC: ECHO 08:59
PROVIDERS: ATTEND Internal Medicine Cardiovascular Disease
DX: I48.0 Paroxysmal atrial fibrillation (principal); I51.7 Cardiomegaly
CPT/HCPCS: 93306

== ENCOUNTER → 2020-10-31 | Outpatient (CLI) | payer BC ==
--- NOTE | 2020-10-31 18:21 | RAD ---
EXAM: Bilateral lower extremity venous Doppler. HISTORY: Bilateral lower extremity pain/swelling. COMPARISON: None. FINDINGS: Grayscale and Doppler analysis of the both lower extremity deep venous systems was performe d with graded compression and augmentation. The common femoral, greater saphenous, superficial femora l, popliteal and calf veins were assessed. Visualization was limited by habitus. There is no evidence of deep venous thrombosis. IMPRESSION: 1. No evidence of deep venous thrombosis. Electronically signed by: Bushra Kebede MD (10/31/2020 6:18 PM) [id number]
== END ==
LOC: US 16:44
PROVIDERS: ATTEND Nurse Practitioner Adult Health
DX: I87.2 Venous insufficiency (chronic) (peripheral) (principal); R22.43 Localized swelling, mass and lump, lower limb, bilateral
CPT/HCPCS: 93970

== ENCOUNTER 2020-12-25 09:48 | Emergency (ER) | payer BC ==
[~2020-12-25] VITALS: Ht 170.2 cm; Wt 147.4 kg
[2020-12-25 09:51] VITALS: BP 158/90
[2020-12-25] MEDS ORDERED: CYCL-331 PO (10:21)
--- NOTE | 2020-12-25 10:21 | PHYS DOC ---
Past History Past Medical History: A-Fib, Hypertension Past Surgical History: , Hysterectomy, Tonsillectomy Smoking: Quit Greater Than 1 Year Alcohol Use: None Drug Use: None General Adult EDM: Chief Complaint: UPPER EXTREMITY PAIN HPI: HPI: 50-year-old female coming in for left shoulder pain that radiates down her arm. Is worse with lifting her arm. Patient states she woke up with the pain yesterday but states was worse this morning and having difficulty moving her arm. Denies any recent injury or falls. Denies any neck pain. Review of Systems: Review of Systems: All other systems within normal limits except for as noted in the HPI Allergies: Allergies: Allergies Coded Allergies Type Severity Reaction Last Updated Verified No Known Drug Allergies 05/22/15 No Physical Exam: PE: Constitutional: Well developed, well nourished, no acute distress, non-toxic appearance. [] HENT: Normocephalic, atraumatic, bilateral external ears normal, nose normal. [] Eyes: PERRLA, conjunctiva normal, no discharge. [] Neck: No rigidity, supple, no stridor. No cervical spine tenderness step-off or deformity. Pain not reproducible with palpation of left lateral neck [] Cardiovascular: Regular rate and rhythm, brisk cap refill [] Lungs & Thorax: Non labored symmetric respirations, no tachypnea or respiratory distress [] Abdomen: Soft, nondistended. Skin: Warm, dry, no erythema, no rash. [] Back: Unremarkable, muscle point tenderness and spasm over left trapezius. No tenderness over thoracic spine Extremities: No deformities, range of motion grossly intact, no lower extremity edema. Left shoulder range of motion intact without gross deformity or joint line tenderness. [] Neurologic: Alert and oriented X 3, no focal deficits noted. [] Psychologic: Affect normal, judgement normal, mood normal. [] EKG: EKG: [] Radiology/Procedures: Radiology/Procedures: [] Heart Score: C/O Chest Pain: No Risk Factors: Risk Factors: DM, Current or recent (<one month) smoker, HTN, HLP, family history of CAD, obesity. Risk Scores: Score 0 - 3: 2.5% MACE over next 6 weeks - Discharge Home Score 4 - 6: 20.3% MACE over next 6 weeks - Admit for Clinical Observation Score 7 - 10: 72.7% MACE over next 6 weeks - Early Invasive Strategies Course & Med Decision Making: Course & Med Decision Making Pertinent Labs and Imaging studies reviewed. (See chart for details) [] Beka Disclaimer: Beka Disclaimer: This electronic medical record was generated, in whole or in part, using a voice recognition dictation system. Departure Departure: Impression: Primary Impression: Trapezius muscle spasm Disposition: HOME / SELF CARE / HOMELESS Condition: STABLE Referrals: SHAWN HAWLEY MD (PCP) Patient Instructions: Muscle Cramps Additional Instructions: Use Tylenol and muscle relaxer as needed, recommend heat and massage over tense muscle area. Scripts Cyclobenzaprine Hcl (CYCLOBENZAPRINE HCL) 10 Mg Tablet 1 TAB PO TID PRN for MUSCLE SPASMS for 5 Days, #15 TAB Prov: LUIS POPE MD 12/25/20 LUIS POPE MD Dec 25, 2020 10:21
[2020-12-25] MEDS ORDERED: ACETAMINOPHEN 500 MG TABLET PO ONE (10:30)
[2020-12-25] MEDS ORDERED: ORPHENADRINE CITRATE 60 MG/2 ML VIAL. IM ONE (10:30)
[2020-12-25] MEDS ORDERED: HYDR-2759 PO (23:41)
== END 2020-12-25 10:45 | disposition home or self-care (01) ==
LOC: ER 09:48
DX: M62.838 Other muscle spasm (principal); M25.512 Pain in left shoulder; I48.91 Unspecified atrial fibrillation; I10 Essential (primary) hypertension; Z87.891 Personal history of nicotine dependence; Z98.890 Other specified postprocedural states; Z90.710 Acquired absence of both cervix and uterus
CPT/HCPCS: 96372; 99283; J2360

== ENCOUNTER 2020-12-25 22:38 | Emergency (ER) | payer BC ==
[~2020-12-25] VITALS: Ht 170.2 cm; Wt 147.4 kg
[~2020-12-25 22:38] MED LIST changes: +CYCL-331 PO
--- NOTE | 2020-12-25 23:29 | RAD ---
AP chest, left shoulder 3 views. HISTORY: Left shoulder chest pain 3 views were taken the left shoulder. There is not evidence of an acute fracture or osseous abnormali ty or dislocation AP chest AP view was taken of the chest. There is an old right rib fracture. Heart is upper normal in size. Th e aorta is tortuous. Patient is not taken a deep inspiration. There are no confluent infiltrates. IMPRESSION: 1. Old right rib fractures. 2. No acute infiltrates. 3. No fracture or dislocation left shoulder. Electronically signed by: Francesco Marr MD (12/25/2020 11:27 PM) [facility]
[2020-12-25] MEDS ORDERED: HYDR-2759 PO (23:41)
--- NOTE | 2020-12-25 23:42 | PHYS DOC ---
Past History Past Medical History: A-Fib, Hypertension Past Surgical History: , Hysterectomy, Tonsillectomy Smoking: Quit Greater Than 1 Year Alcohol Use: None Drug Use: None Adult General Chief Complaint Chief Complaint: UPPER EXTREMITY INJURY HPI HPI Patient is a 50-year-old female with past medical history significant for A. fib, hypertension and chronic left shoulder pain who presents with left shoulder pain. States she came into the emergency department earlier with the same issues and was given some muscle relaxers and sent home. States that they helped a little but she still having pain in her shoulder, 6 out of 10, dull and achy in nature that hurts worse when she moves her shoulder. Denies any recent traumas, travels, fevers, illnesses, chest pain, shortness of breath, abdominal pain, nausea, vomiting, dysuria, hematuria or blood in the stool. States she had taken anything at home for the pain other than the Tylenol and muscle relaxer given earlier. Denies any dyspnea on exertion, orthopnea, PND or edema. Review of Systems Review of Systems Review of systems otherwise unremarkable except noted in HPI Allergies Allergies Allergies Coded Allergies Type Severity Reaction Last Updated Verified No Known Drug Allergies 05/22/15 No Physical Exam Physical Exam Constitutional: Well developed, well nourished, no acute distress, non-toxic appearance. [] HENT: Normocephalic, atraumatic, bilateral external ears normal, oropharynx moist, no oral exudates, nose normal. [] Eyes: conjunctiva normal, no discharge. [] Neck: Normal range of motion, no tenderness, supple, no stridor. [] Cardiovascular:Heart rate regular rhythm, no murmur [] Lungs & Thorax: Bilateral breath sounds clear to auscultation [] Abdomen: soft, no tenderness, no masses, no pulsatile masses. [] Skin: Warm, dry, no erythema, no rash. [] Back: No tenderness, Extremities: Mild generalized tenderness around left shoulder with passive range of motion with no obvious bruising, or deformities noted. Neurovascular exam intact. Neurologic: Alert and oriented X 3, normal motor function, normal sensory function, able to sit, stand and walk without issue no focal deficits noted. [] Psychologic: Affect normal, judgement normal, mood normal. [] Current Patient Data Vital Signs Vital Signs Date Time Temp Pulse Resp B/P (MAP) Pulse Ox O2 Delivery O2 Flow Rate FiO2 12/25/20 23:23 97.0 63 18 177/76 (109) 97 Room Air EKG EKG EKG with a rate of 63, QRS of 102, QTc of 454, no STEMI [] Radiology/Procedures Radiology/Procedures []P chest, left shoulder 3 views. HISTORY: Left shoulder chest pain 3 views were taken the left shoulder. There is not evidence of an acute fracture or osseous abnormality or dislocation AP chest AP view was taken of the chest. There is an old right rib fracture. Heart is upper normal in size. The aorta is tortuous. Patient is not taken a deep inspiration. There are no confluent infiltrates. IMPRESSION: 1. Old right rib fractures. 2. No acute infiltrates. 3. No fracture or dislocation left shoulder. Electronically signed by: Francesco Marr MD (12/25/2020 11:27 PM) [facility] Heart Score C/O Chest Pain: No Risk Factors: Risk Factors: DM, Current or recent (<one month) smoker, HTN, HLP, family history of CAD, obesity. Risk Scores: Risk Factors: DM, Current or recent (<one month) smoker, HTN, HLP, family history of CAD, obesity. Course & Med Decision Making Course & Med Decision Making Patient is a 50-year-old female presents with left shoulder pain, acute on chronic Vital signs notable for hypertension. Physical exam noted above. EKG noted above and no STEMI. Imaging with no acute osseous abnormalities other than old right rib fracture. Troponin not concerning. Given patient oral pain medication. On reassessment patient's shoulder pain had improved and asked to be discharged home. Gave pain recommendations for home. Advised to follow-up in the morning with p [facility] physician to discuss ED visit. Gave return precautions to the ED. Patient grateful, verbalized understanding and agreed with plan of discharge. [] Dragon Disclaimer Dragon Disclaimer This electronic medical record was generated, in whole or in part, using a voice recognition dictation system. Departure Departure: Impression: Primary Impression: Left shoulder pain Disposition: HOME / SELF CARE / HOMELESS Condition: GOOD Referrals: SHAWN HAWLEY MD (PCP) Patient Instructions: RICE - Routine Care for Injuries, Pbqr-sr-Llvy, Shoulder Pain, Qrhi-ka-Veqo Additional Instructions: Thank you for coming into the emergency department tonight and allowing us to take care of you. Please read all the attached information very carefully. As long as you are able to tolerate it you can begin a Tylenol, ibuprofen, Lidoderm patch and ice regimen at home as tolerated and needed for pain control. Please use your prescription medicine only as needed for breakthrough pain. It is very important that you call your primary care physician first thing in the morning to update on your ED visit and set up a follow-up appointment to discuss chronic pain management and your ED visit. You can come back to the emergency department with new or concerning symptoms as discussed. Scripts Hydrocodone/Acetaminophen (Hydrocodone-Acetamin 5-325 mg) 1 Each Tablet 1 EACH PO TID for shoulder pain for 3 Days, #9 TAB Prov: CIARA FRANKLIN MD 12/25/20 CIARA FRANKLIN MD Dec 25, 2020 23:42
[2020-12-26] MEDS ORDERED: HYDROcodone/APAP 5/325MG 1 TAB TABLET PO ONE
[2020-12-26 00:50] VITALS: BP 189/93
--- NOTE | 2020-12-26 04:17 | EKG ---
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
== END 2020-12-26 00:50 | disposition home or self-care (01) ==
LOC: ER 22:38
DX: M25.512 Pain in left shoulder (principal); I48.91 Unspecified atrial fibrillation; I10 Essential (primary) hypertension; Z87.891 Personal history of nicotine dependence
CPT/HCPCS: 36415; 71045; 73030; 84484; 93005; 99284

== ENCOUNTER 2021-05-20 15:21 | Emergency (ER) | payer BC ==
[~2021-05-20] VITALS: Ht 170.2 cm; Wt 140.0 kg
[~2021-05-20 15:21] MED LIST changes: -CYCL-331 PO; +CYCL10TA19 PO; +HYDR-2759 PO
--- NOTE | 2021-05-20 15:44 | PHYS DOC ---
Past History Past Medical History: A-Fib, Hypertension (ADALID ADAME) Past Surgical History: , Hysterectomy, Tonsillectomy (ADALID ADAME) Smoking: Quit Greater Than 1 Year Alcohol Use: None Drug Use: None (ADALID ADAME) General Adult EDM: Chief Complaint: PUNCTURE WOUND HPI: HPI: Patient is a 50 year old female with history of A. fib and hypertension who presents with bleeding from a superficial wound to her right thigh. Patient states she got home from work and was resting in bed, when she encouraged her dog to get up with her. The dog's back foot slipped on the blanket, and scratched her thigh over a large varicose vein. Patient states that this is happened in the past, and it did eventually stop bleeding. Patient reports that she takes Xarelto, but no other blood thinners or anticoagulants. She is unaware of the date of her last tetanus vaccination. Patient has no other complaints at this time. (ADALID ADAME) Review of Systems: Review of Systems: 12 systems reviewed. ROS negative except as mentioned in HPI. (ADALID ADAME) Allergies: Allergies: Allergies Coded Allergies Type Severity Reaction Last Updated Verified No Known Drug Allergies 05/22/15 No (ADALID ADAME) Physical Exam: PE: Constitutional: Obese, no acute distress, non-toxic appearance. Cardiovascular: Heart rate irregular rhythm, no murmur. Lungs & Thorax: Bilateral breath sounds clear to auscultation. Skin: Warm, dry. Multiple engorged varicose veins noted bilateral lower extremities. Edema, stasis rash and cellulitis appreciated bilateral lower extremities. Extremities: No tenderness, no cyanosis, no clubbing, ROM intact, bilateral lower extremity edema with what appears to be chronic cellulitic stasis rash. (ADALID ADAME) Current Patient Data: Labs: Laboratory Tests Test 05/20/21 15:50 White Blood Count 8.5 x10^3/uL (4.0-11.0) Red Blood Count 4.32 x10^6/uL (3.50-5.40) Hemoglobin 12.6 g/dL (12.0-15.5) Hematocrit 38.3 % (36.0-47.0) Mean Corpuscular Volume 89 fL (79-100) Mean Corpuscular Hemoglobin 29 pg (25-35) Mean Corpuscular Hemoglobin Concent 33 g/dL (31-37) Red Cell Distribution Width 15.0 % (11.5-14.5) Platelet Count 278 x10^3/uL (140-400) Neutrophils (%) (Auto) 66 % (31-73) Lymphocytes (%) (Auto) 22 % (24-48) Monocytes (%) (Auto) 9 % (0-9) Eosinophils (%) (Auto) 2 % (0-3) Basophils (%) (Auto) 1 % (0-3) Neutrophils # (Auto) 5.6 x10^3uL (1.8-7.7) Lymphocytes # (Auto) 1.9 x10^3/uL (1.0-4.8) Monocytes # (Auto) 0.8 x10^3/uL (0.0-1.1) Eosinophils # (Auto) 0.2 x10^3/uL (0.0-0.7) Basophils # (Auto) 0.1 x10^3/uL (0.0-0.2) Prothrombin Time 12.8 SEC (9.4-11.4) Prothromb Time International Ratio 1.2 (0.9-1.1) Activated Partial Thromboplast Time 34 SEC (23-33) Vital Signs: VS - Last 72 Hours, by Label Date Time Temp Pulse Resp B/P (MAP) Pulse Ox O2 Delivery O2 Flow Rate FiO2 05/20/21 18:44 80 18 132/70 (90) 98 Room Air 05/20/21 15:47 98.2 70 16 147/72 (97) 98 (ADALID ADAME) Heart Score: C/O Chest Pain: No (ADALID ADAME) Course & Med Decision Making: Course & Med Decision Making Pertinent Labs and Imaging studies reviewed. (See chart for details) Patient's blood thinner use is likely contributing to the prolonged bleeding from the varicose vein. Coagulation studies ordered as well as CBC. After 1 hour with a direct pressure dressing with quick clot, gauze and Coban, bleeding did not slow significantly. 6 4-0 Vicryl sutures were placed for hemostasis. Patient is instructed to follow-up with her internet marketing executive for further management of her varicose veins. Patient given strict return precautions for bleeding recurrence. She is advised also to discuss her Xarelto dosage with her internet marketing executive at her follow-up visit. Patient understands and is agreeable to discharge plan. (ADALID ADAME) Beka Disclaimer: Beka Disclaimer: This electronic medical record was generated, in whole or in part, using a voice recognition dictation system. (ADALID ADAME) Departure Departure: Impression: Primary Impression: Bleeding from varicose vein Additional Impressions: PT prolonged Hx of half-way use of blood thinners Disposition: HOME / SELF CARE / HOMELESS Condition: STABLE Referrals: SHAWN HAWLEY MD (PCP) RUTHANN RENEE MD Patient Instructions: Absorbable Suture Repair-Brief, Bleeding Time, Bleeding Varicose Veins Additional Instructions: Keep the area where the sutures are clean and dry. Be gentle when cleansing the area. Return to the emergency department if the wound begins to bleed again. Attending Signature Attending Signature I have participated in the care of this patient and I have reviewed and agree with all pertinent clinical information above including history, exam, and recommendations. (GEETA QUINONEZ MD) ADALID ADAME May 20, 2021 15:44 GEETA QUINONEZ MD May 25, 2021 03:37
[2021-05-20] MEDS ORDERED: DIPH,PERTUSS(ACELL),TET VAC/PF 0.5 ML SYRINGE. VAX IM ONE ×2 (16:03→16:15)
[2021-05-20 16:13] LABS: BASO # 0.1 x10^3/uL (0.0-0.2); BASO % 1 % (0-3); EOS # 0.2 x10^3/uL (0.0-0.7); EOS % 2 % (0-3); HEMATOCRIT 38.3 % (36.0-47.0); HEMOGLOBIN 12.6 g/dL (12.0-15.5); LYMPH # 1.9 x10^3/uL (1.0-4.8); LYMPH % 22 % (24-48); MEAN CORPUSCULAR HEMOGLOBIN 29 pg (25-35); MEAN CORPUSCULAR HGB CONC 33 g/dL (31-37); MEAN CORPUSCULAR VOLUME 89 fL (79-100); MONO # 0.8 x10^3/uL (0.0-1.1); MONO % 9 % (0-9); NEUT # 5.6 x10^3uL (1.8-7.7); NEUT % 66 % (31-73); PLATELET COUNT 278 x10^3/uL (140-400); RED BLOOD COUNT 4.32 x10^6/uL (3.50-5.40); WHITE BLOOD COUNT 8.5 x10^3/uL (4.0-11.0)
[2021-05-20] MEDS ORDERED: LIDOCAINE 2%/EPI 1:100,000 20 ML VIAL. IJ ONE (17:45)
[2021-05-20 18:44] VITALS: BP 132/70
== END 2021-05-20 18:57 | disposition home or self-care (01) ==
LOC: ER 15:21
DX: I83.893 Varicose veins of bilateral lower extremities with other complications (principal); R79.1 Abnormal coagulation profile; I48.91 Unspecified atrial fibrillation; I10 Essential (primary) hypertension; Z87.891 Personal history of nicotine dependence; Z79.01 Long term (current) use of anticoagulants
CPT/HCPCS: 36415; 85025; 85610; 85730; 90471; 90715; 99283

== ENCOUNTER 2021-09-09 09:58 | Emergency (ER) | payer BC, OTHER ==
[~2021-09-09] VITALS: Ht 170.2 cm; Wt 140.0 kg
--- NOTE | 2021-09-09 10:35 | PHYS DOC ---
Past History Past Medical History: A-Fib, Hypertension Additional Past Medical Histor: VARIOCOSE VEINS Past Surgical History: Other Smoking: Quit Greater Than 1 Year Alcohol Use: None Drug Use: None General Adult EDM: Chief Complaint: LOWER EXT PAIN HPI: HPI: Patient is a 50-year-old female coming in for pain, swelling, and open seeping wounds to bilateral lower extremities. She states she has had swelling to her lower extremities for years that has gotten worse over the past 6 months. Patient states it started off as fluid filled blisters that then ruptured. Patient has recently started going to wound care, but states after her legs are wrapped the seeping had penetrated the leg wrappings before she can get home. Patient denies any purulent drainage. Patient denies any known history of thyroid problems or heart failure. Patient takes Xarelto for atrial fibrillation. Denies any fever, chills or other systemic complaints. Patient states that she drinks about 60 ounces of water a day urinates very little. Patient has not been trying to elevate them or use compressive dressings. Review of Systems: Review of Systems: All other systems within normal limits except for as noted in the HPI Allergies: Allergies: Allergies Coded Allergies Type Severity Reaction Last Updated Verified No Known Drug Allergies 05/22/15 No Physical Exam: PE: Constitutional: Well developed, well nourished, no acute distress, non-toxic appearance. [] HENT: Normocephalic, atraumatic, bilateral external ears normal, nose normal. [] Eyes: PERRLA, conjunctiva normal, no discharge. [] Neck: No rigidity, supple, no stridor. [] Cardiovascular: Regular rate and rhythm, brisk cap refill [] Lungs & Thorax: Non labored symmetric respirations, no tachypnea or respiratory distress [] Abdomen: Soft, nondistended. Skin: Warm, dry, no erythema, no rash. [] Circumferential venous stasis around distal lower leg, multiple superficial ulcerations with serous drainage Back: Unremarkable Extremities: No deformities, range of motion grossly intact, bilateral 3+ pitting edema, no calf tender Neurologic: Alert and oriented X 3, no focal deficits noted. [] Psychologic: Affect normal, judgement normal, mood normal. [] Current Patient Data: Vital Signs: Vital Signs Date Time Temp Pulse Resp B/P (MAP) Pulse Ox O2 Delivery O2 Flow Rate FiO2 3/8/22 10:08 98.5 71 16 130/70 (90) 98 Room Air EKG: EKG: [] Radiology/Procedures: Radiology/Procedures: [] Heart Score: C/O Chest Pain: No Risk Factors: Risk Factors: DM, Current or recent (<one month) smoker, HTN, HLP, family history of CAD, obesity. Risk Scores: Score 0 - 3: 2.5% MACE over next 6 weeks - Discharge Home Score 4 - 6: 20.3% MACE over next 6 weeks - Admit for Clinical Observation Score 7 - 10: 72.7% MACE over next 6 weeks - Early Invasive Strategies Course & Med Decision Making: Course & Med Decision Making Pertinent Labs and Imaging studies reviewed. (See chart for details) [] Dragon Disclaimer: Dragon Disclaimer: This electronic medical record was generated, in whole or in part, using a voice recognition dictation system. Departure Departure: Impression: Primary Impression: Edema, peripheral Disposition: HOME / SELF CARE / HOMELESS Condition: STABLE Referrals: MAZIN GUERIN MD (PCP) Patient Instructions: Compression Stockings Additional Instructions: Elevates her extremities as able to. Follow-up with wound care and monitor for signs of infection. Palpated primary care provider regarding further management of lower extremity edema and TSH result Scripts Hydrocodone Bit/Acetaminophen (HYDROCODONE-APAP 5-325 ) 1 Each Tablet 1 TAB PO PRN Q6HRS PRN for PAIN for 3 Days, #15 TAB 0 Refills Caution: this medication can make you drowsy. Do not drive or operate heavy machinery when using this medication. Prov: LUIS POPE MD 09/09/21 LUIS POPE MD Sep 09, 2021 10:35
[2021-09-09 11:12] LABS: BASO # 0.1 x10^3/uL (0.0-0.2); BASO % 1 % (0-3); EOS # 0.1 x10^3/uL (0.0-0.7); EOS % 2 % (0-3); HEMOGLOBIN 12.9 g/dL (12.0-15.5); LYMPH # 1.5 x10^3/uL (1.0-4.8); LYMPH % 18 % (24-48); MEAN CORPUSCULAR HEMOGLOBIN 29 pg (25-35); MEAN CORPUSCULAR HGB CONC 33 g/dL (31-37); MEAN CORPUSCULAR VOLUME 89 fL (79-100); MONO # 0.9 x10^3/uL (0.0-1.1); MONO % 11 % (0-9); NEUT # 5.8 x10^3uL (1.8-7.7); NEUT % 69 % (31-73); PLATELET COUNT 298 x10^3/uL (140-400); RED BLOOD COUNT 4.38 x10^6/uL (3.50-5.40); RED CELL DISTRIBUTION WIDTH 15.5 % (11.5-14.5); WHITE BLOOD COUNT 8.5 x10^3/uL (4.0-11.0)
[2021-09-09 11:18] LABS: CALCIUM 9.5 mg/dL (8.5-10.1); CREATININE 1.4 mg/dL (0.6-1.0); GFR 39.6; POTASSIUM 4.4 mmol/L (3.5-5.1)
[2021-09-09 11:26] LABS: ALBUMIN 3.1 g/dL (3.4-5.0); ALBUMIN/GLOBULIN RATIO 0.7 (1.0-1.7); MAGNESIUM 2.2 mg/dL (1.8-2.4); PHOSPHORUS 3.4 mg/dL (2.6-4.7); TOTAL BILIRUBIN 0.3 mg/dL (0.2-1.0); TOTAL PROTEIN 7.8 g/dL (6.4-8.2)
[2021-09-09] MEDS ORDERED: HYDR-2155 PO (12:52)
[2021-09-09 13:24] VITALS: BP 132/68
== END 2021-09-09 13:25 | disposition home or self-care (01) ==
LOC: ER 09:58
DX: R60.0 Localized edema (principal); M79.605 Pain in left leg; M79.604 Pain in right leg; I48.91 Unspecified atrial fibrillation; I10 Essential (primary) hypertension; Z87.891 Personal history of nicotine dependence
CPT/HCPCS: 36415; 80053; 83735; 83880; 84100; 84443; 84484; 85025; 85610; 99283

== ENCOUNTER 2021-09-16 18:25 | Emergency (ER) | payer OTHER ==
[~2021-09-16] VITALS: Ht 170.2 cm; Wt 145.0 kg
[~2021-09-16 18:25] MED LIST changes: +HYDR-2155 PO
--- NOTE | 2021-09-16 19:24 | PHYS DOC ---
Past History Past Medical History: A-Fib, Hypertension Additional Past Medical Histor: VARIOCOSE VEINS (AIDE CEE APRN) Past Surgical History: Other (AIDE CEE APRN) Smoking: Quit Greater Than 1 Year Alcohol Use: None Drug Use: None (AIDE CEE APRN) General Adult EDM: Chief Complaint: CONSTIPATION HPI: HPI: Patient is a 51-year-old female who presents to the emergency department today for constipation. Patient reports that her last bowel movement was 2 weeks ago. She is reporting generalized abdominal pain that she rates 4 out of 10. She reports taking Dulcolax chewables and suppositories. Her primary care provider is Dr. Wheatley but she states that she has not followed up with him regarding this. She denies any abdominal surgeries other than C-sections. She denies fever, nausea, vomiting, blood in her stools. (AIDE CEE APRN) Review of Systems: Review of Systems: Constitutional: See HPI GI: See HPI (AIDE CEE APRN) Current Medications: Current Meds: Current Medications Medications (Trade) Dose Ordered Sig/Ruma Start Time Stop Time Status Last Admin Dose Admin Magnesium Citrate (Citroma) 296 ml 1X ONCE 09/16/21 19:30 09/16/21 19:31 UNV (AIDE CEE APRN) Allergies: Allergies: Allergies Coded Allergies Type Severity Reaction Last Updated Verified No Known Drug Allergies 05/22/15 No (AIDE CEE APRN) Physical Exam: PE: Constitutional: Well developed, well nourished, no acute distress, non-toxic appearance. [] HENT: Normocephalic, atraumatic, bilateral external ears normal, oropharynx moist, no oral exudates, nose normal. [] Eyes: PERRL, EOMI, conjunctiva normal, no discharge. [] Neck: Normal range of motion, no stridor Cardiovascular:Heart rate regular rhythm, no murmur [] Lungs & Thorax: Bilateral breath sounds clear to auscultation [] Abdomen: Bowel sounds normal, soft, no tenderness, obese abdomen, no abdominal guarding or rigidity, no masses, no pulsatile masses. [] Skin: Warm, dry, no erythema, no rash. [] Back: Normal range of motion Extremities: No tenderness, no cyanosis, no clubbing, ROM intact, no edema. [] Neurologic: Alert and oriented X 3, normal motor function, normal sensory function, no focal deficits noted. [] Psychologic: Affect normal, judgement normal, mood normal. [] (AIDE CEE APRN) EKG: EKG: [] (AIDE CEE APRN) Radiology/Procedures: Radiology/Procedures: []PROCEDURE: CT ABDOMEN PELVIS WO CONTRAST Examination: CT abdomen pelvis without contrast HISTORY: History of abdominal pain, low bowel movements COMPARISON: None available Technique: Axial CT images of abdomen is performed without contrast. Coronal and sagittal reformats are performed Exposure: One or more of the following individualized dose reduction techniques were utilized for this examination: 1. Automated exposure control 2. Adjustment of the mA and/or kV according to patient size 3. Use of iterative reconstruction technique FINDINGS: The bibasilar lungs are clear. No evidence of free air identified in the abdomen.The evaluation of the solid organs is limited due to lack of IV contrast. The evaluation of bowel is limited due to lack of oral contrast. Mild decreased attenuation noted in the liver likely hepatic steatosis. The spleen, adrenals grossly appears unremarkable. The gallbladder is mildly distended. The stomach is mildly distended with visualized pancreas grossly appears unremarkable. Small bowel is nondilated. The appendix is normal. Moderate amount of feces and gas identified in the rectum. Mild thickened appearance of the wall of the rectum. Urinary bladder is mildly distended. No evidence of intrarenal collecting system calculi or hydronephrosis ident ified. Old right rib fractures identified. Moderate degenerative changes thoracal lumbar spine. IMPRESSION: 1. Moderate amount of feces identified in the rectum with thickened appearance of the rectum could be secondary to fecal impaction or constipation. Underlying proctitis is not completely excluded. 2. Moderate amount of feces and gas identified in the rectum. 3. Mild hepatic steatosis. Electronically signed by: Jt Glez MD (09/16/2021 7:53 PM) [id number] DICTATED AND SIGNED BY: JT GLEZ MD DATE: 09/16/211944 CC: AIDE CEE APRN; MAZIN WHEATLEY MD ~MTH0 0 (AIDE CEE APRN) Heart Score: C/O Chest Pain: N/A Risk Factors: Risk Factors: DM, Current or recent (<one month) smoker, HTN, HLP, family history of CAD, obesity. Risk Scores: Score 0 - 3: 2.5% MACE over next 6 weeks - Discharge Home Score 4 - 6: 20.3% MACE over next 6 weeks - Admit for Clinical Observation Score 7 - 10: 72.7% MACE over next 6 weeks - Early Invasive Strategies (AIDE CEE APRN) Course & Med Decision Making: Course & Med Decision Making Pertinent Labs and Imaging studies reviewed. (See chart for details) [] Patient presents to the emergency department today for constipation x2 weeks. CT imaging was performed to rule out obstruction as she is reporting constipation and abdominal pain. Patient was treated with magnesium citrate. CT imaging did not show any signs of obstruction but moderate amount of stool noted at rectum. Patient does have a small amount of stool noted. Patient advised to increase her fluids and add MiraLAX daily. Vital signs are stable. She is not reporting any nausea, vomiting, diarrhea, fevers. She is able to tolerate oral intake. Discussed with supervising physician. I discussed with patient all findings and diagnostic testing as well as the need to follow-up with PCP for further evaluation and treatment or return to the ER if any new or worsening symptoms. Strict return precautions were also discussed at length. Patient voiced understanding and agreement with the plan. Patient is hemodynamically stable at the time of disposition. (AIDE CEE APRN) Course & Med Decision Making Did not see or evaluate patient. Did not discuss patient with PAIN MEDICINE PHYSICIAN. Generally agree with PAIN MEDICINE PHYSICIAN's work-up and disposition per note. (CIARA FRANKLIN MD) Dragon Disclaimer: Dragon Disclaimer: This electronic medical record was generated, in whole or in part, using a voice recognition dictation system. (AIDE CEE APRN) Departure Departure: Impression: Primary Impression: Constipation Qualified Codes: K59.00 - Constipation, unspecified Disposition: HOME / SELF CARE / HOMELESS Condition: GOOD Referrals: MAZIN WHEATLEY MD (PCP) Patient Instructions: Constipation, Adult Additional Instructions: You were seen in the emergency department today for constipation. A CT scan was performed that showed no obstruction. You were given mag citrate for constipation. At home increase your fluids, discontinue any opiate use as that will attribute to constipation. You can also add MiraLAX daily. Please follow- up with your primary care provider tomorrow regarding your ER visit. Return to the emergency department if you develop abdominal pain, intractable nausea or vomiting, inability to tolerate oral intake or eat, high fevers refractory to treatment, blood in your stools or vomit. AIDE CEE APRN Sep 16, 2021 19:24 CIARA FRANKLIN MD Sep 16, 2021 20:26
[2021-09-16] MEDS ORDERED: MAGNESIUM CITRATE 296 ML SOLUTION. PO ONE (19:30)
--- NOTE | 2021-09-16 19:55 | RAD ---
Examination: CT abdomen pelvis without contrast HISTORY: History of abdominal pain, low bowel movements COMPARISON: None available Technique: Axial CT images of abdomen is performed without contrast. Coronal and sagittal reformats a re performed Exposure: One or more of the following individualized dose reduction techniques were utilized for thi s examination: 1. Automated exposure control 2. Adjustment of the mA and/or kV according to patient size 3. Use of iterative reconstruction technique FINDINGS: The bibasilar lungs are clear. No evidence of free air identified in the abdomen.The evaluation of th e solid organs is limited due to lack of IV contrast. The evaluation of bowel is limited due to lack of oral contrast. Mild decreased attenuation noted in the liver likely hepatic steatosis. The spleen, adrenals grossly appears unremarkable. The gallbladder is mildly distended. The stomach is mildly distended with visua lized pancreas grossly appears unremarkable. Small bowel is nondilated. The appendix is normal. Moder ate amount of feces and gas identified in the rectum. Mild thickened appearance of the wall of the re ctum. Urinary bladder is mildly distended. No evidence of intrarenal collecting system calculi or hydronephrosis identified. Old right rib fractures identified. Moderate degenerative changes thoracal lumbar spine. IMPRESSION: 1. Moderate amount of feces identified in the rectum with thickened appearance of the rectum could b e secondary to fecal impaction or constipation. Underlying proctitis is not completely excluded. 2. Moderate amount of feces and gas identified in the rectum. 3. Mild hepatic steatosis. Electronically signed by: Jt Glez MD (09/16/2021 7:53 PM) [id number]
[2021-09-16 20:23] VITALS: BP 118/58
== END 2021-09-16 20:26 | disposition home or self-care (01) ==
LOC: ER 18:25
DX: K59.00 Constipation, unspecified (principal); R10.84 Generalized abdominal pain; I48.91 Unspecified atrial fibrillation; I10 Essential (primary) hypertension; Z87.891 Personal history of nicotine dependence
CPT/HCPCS: 74176; 99284

== ENCOUNTER → 2021-10-16 | Outpatient (CLI) | payer OTHER ==
[2021-09-16 20:23] VITALS: BP 118/58
--- NOTE | 2021-10-17 09:06 | RAD ---
Exam: US DPLX ARTR EXTREM LOWER BILAT, US DPLX ARTR EXTREM LOWER BILAT History: NON-HEALING WOUNDS BILAT, HX OF SMOKING 15 YRS, HTN. Concern for arterial insufficiency. Comparison: CT abdomen and pelvis 09/16/2021. Technique: Grayscale, color, and spectral Doppler ultrasound images of the bilateral lower extremity arteries. Findings: Depressed monophasic waveforms with spectral broadening are seen bilaterally throughout the lower ext remity arteries. The right common femoral artery is patent with peak systolic velocity 178 cm/s. The left common femor al artery is patent with peak systolic velocity 186 cm/s. Bilateral superficial femoral artery, popli teal artery, 3 vessel runoff to the dorsalis pedis and anterior tibial arteries at the ankles are pat ent. No stenosis is identified visually and there is no significant interval velocity increases to townsend ggest significant stenosis. Impression: 1. Patent bilateral lower extremity arteries without significant stenosis identified. 2. Dampened monophasic waveforms throughout the bilateral lower extremities consistent with peripher al arterial disease. Electronically signed by: Stalin Townsend MD (10/17/2021 9:04 AM) [id number]
== END ==
LOC: US 16:11
PROVIDERS: ATTEND Emergency Medicine Undersea and Hyperbaric Medicine
DX: L97.929 Non-pressure chronic ulcer of unspecified part of left lower leg with unspecified severity (principal); L97.919 Non-pressure chronic ulcer of unspecified part of right lower leg with unspecified severity; I10 Essential (primary) hypertension; Z87.891 Personal history of nicotine dependence
CPT/HCPCS: 93923; 93925